=== PATIENT | male | born 1970 | race Caucasian/White ===

== ENCOUNTER → 2016-05-30 | Outpatient (CLI) | payer BC ==
[~2016-05-30] MED LIST: ACET-1138 PO; IBUP-1105 PO
--- NOTE | 2016-05-30 15:42 | DIAGNOSTIC IMAGING REPORT ---
CHEST 2 VIEWS ROUTINE CLINICAL HISTORY: Fever. Right lower lobe rales. COMPARISON STUDY: 01/04/2009 FINDINGS: The heart is the upper limits of normal in size. There is mild interstitial thickening with a basilar predominance. There is no lobar consolidation. There is no overt failure. There are no pleural effusions.[ IMPRESSION: Mild interstitial thickening with a basilar predominance. No evidence of lobar consolidation Electronically signed by: Joselo Morillo M.D. 05/30/2016 3:41 PM Dictated Date/Time: 05/30/2016 3:40 PM
== END | disposition home or self-care (01) ==
LOC: C.LAB1850 15:20
PROVIDERS: ATTEND Family Medicine
DX: J18.9 Pneumonia, unspecified organism (principal)

== ENCOUNTER 2020-09-06 19:15 | Inpatient (IN) ==
[2020-09-06 21:09] LABS: Basophils # (auto) 0.03 K/uL (0-0.2); Basophils % (auto) 0.2 %; Eosinophils # (auto) 0.08 K/uL (0-0.5); Eosinophils % (auto) 0.6 %; Hematocrit (blood only) 43.4 % (42-52); Hemoglobin 14.5 g/dL (14.0-18.0); Immature Granulocytes # (auto) 0.02 K/uL (0.00-0.02); Immature Granulocytes % (auto) 0.2 %; Lymphocytes # (auto) 1.12 K/uL (1.2-3.4); Lymphocytes % (auto) 8.8 %; Mean Corpuscular Hemoglobin 29.8 pg (25-34); Mean Corpuscular Hgb Conc 33.4 g/dL (32-36); Mean Corpuscular Volume 89.3 fL (80-100); Mean Platelet Volume 11.1 fL (7.4-10.4); Monocytes # (auto) 1.29 K/uL (0.11-0.59); Monocytes % (auto) 10.1 %; Neutrophils # (auto) 10.26 K/uL (1.4-6.5); Neutrophils % (auto) 80.1 %; Platelet Count 230 K/uL (130-400); RDW Coefficient of Variation 13.5 % (11.5-14.5); RDW Standard Deviation 44.4 fL (36.4-46.3); Red Blood Count 4.86 M/uL (4.7-6.1)
[2020-09-06 21:25] LABS: Albumin Level 3.6 gm/dl (3.4-5.0); BUN Creatinine Ratio 9.8 (10-20); Calcium 9.1 mg/dl (8.5-10.1); Creatinine Clr Calc Pharmacy 110.4 ml/min; Est GFR (African American) 94.6 ml/min; Est GFR (Non-African American) 81.7 ml/min; Potassium 3.6 mmol/L (3.5-5.1)
[2020-09-06 21:28] LABS: Albumin Globulin Ratio 0.9 (0.9-2); Bilirubin,Total 1.8 mg/dl (0.2-1); Globulin 4.2 gm/dl (2.5-4.0); Total Protein 7.8 gm/dl (6.4-8.2)
[2020-09-06] MEDS ORDERED: HYDROmorphone INJ 1 MG/ML SYRINGE IV STA (21:56)
[2020-09-06] MEDS ORDERED: SODIUM CHLORIDE 0.9% 1000ML 1,000 ML IV ONE (21:56)
[2020-09-06] MEDS ORDERED: ONDANSETRON INJ 2 MG/ML 2 ML VIAL IV STA (21:56)
[2020-09-07] MEDS ORDERED: HYDROmorphone INJ 0.5 MG/0.5 ML SYR IV STA ×2 (02:04→02:05)
[2020-09-07] MEDS ORDERED: LORazepam 1 MG/2 ML VIAL IV PRN (02:57)
[2020-09-07] MEDS ORDERED: NITROGLYCERIN SL 0.4 MG/TAB TAB SL PRN (02:57)
[2020-09-07] MEDS ORDERED: ALBUTEROL HFA 8 GM INHALER INH PRN (02:57)
[2020-09-07] MEDS ORDERED: ONDANSETRON INJ 2 MG/ML 2 ML VIAL IV PRN (02:57)
[2020-09-07] MEDS ORDERED: ACETAMINOPHEN 325 MG TAB PO PRN (02:57)
[2020-09-07] MEDS: LACTATED RINGER'S 1,000 ML IV SCH ×4 (03:05→19:41)
[2020-09-07] MEDS ORDERED: cloNIDine HCL 0.1 MG TAB PO PRN (03:33)
--- NOTE | 2020-09-07 05:43 | History and Physical Report ---
DATE OF ADMISSION: 09/07/2020. CHIEF COMPLAINT: Abdominal pain. HISTORY OF PRESENT ILLNESS: This is a 50-year-old male with past medical history significant for allergic rhinitis, extensive asthma, hypertension, who presents with abdominal pain. The patient was seen in the ER in the morning with CAT scan showing pancreatitis. Offered admission, but the patient wanted to go home. After going home, the abdominal pain came back and was severe in nature in the epigastric region. Also has some nausea and vomiting, so that is why they came to ER. Denies any diarrhea or blood in the stools. Normal bladder movements. No fever, no chills, no chest pain, no shortness of breath, no cough, no headache, no blurred vision, no earache, no runny nose, no sore throat. Currently, resting comfortably and hemodynamically stable. Says the abdominal pain is coming back, requests pain medication. The patient was here on 08/23/2020 also with a similar problem. At that time, also was treated in the ER and discharged. The patient states it all started a few weeks ago with binge drinking of alcohol and this time it started off last Sunday when he drank a beer. He says he does not drink regularly, he drinks once in a while. ALLERGIES: TO PENICILLINS. PAST MEDICAL HISTORY: As mentioned above. PAST SURGICAL HISTORY: None. MEDICATIONS: On losartan 50 mg p.o. daily, albuterol 2 puffs inhalation q. 4 hours p.r.n., oxycodone 5 mg p.o. q. 6 hours p.r.n., omeprazole 20 mg p.o. daily, Zofran 4 mg p.o. q. 8 hours p.r.n. FAMILY HISTORY: Significant for brother has COPD, heart disorder; father has heart attack and hypertension; mother has hypertension. SOCIAL HISTORY: , no smoking. Alcohol occasional. No drug use. REVIEW OF SYSTEMS: As per HPI. Rest of the review of systems is negative. PHYSICAL EXAMINATION: GENERAL: The patient is obese, not in acute distress. VITAL SIGNS: Temperature 36.7, pulse 69, respiratory rate 14, blood pressure 156/99, oxygen 95% on 2 liters. HEENT: Pupils equal, round, and reactive to light. Oral mucosa moist. NECK: No JVD, no neck masses. CARDIOVASCULAR: S1 and S2 heard. Regular rate and rhythm. No murmur, no gallop. RESPIRATORY SYSTEM: Normal AP diameter. No accessory muscle use. No wheezing, no crackles ABDOMEN: Soft, bowel sounds present. Tenderness in the epigastric region. Mild guarding, no rigidity, no distention. CENTRAL NERVOUS SYSTEM: Cranial nerves II-XII grossly intact, nonfocal. EXTREMITIES: No edema, no erythema. LABORATORY DATA: WBC 12.8, hemoglobin 14.5, hematocrit 43.4, platelets 230. Sodium 138, potassium 3.6, chloride 104, bicarbonate 29, BUN 11, creatinine 1.07, serum glucose 115, calcium 9.1, total bilirubin 1.8, AST 8, ALT 27, alkaline phosphatase 85. Lipase 133. SARS-CoV-2 PCR negative. EKG: Normal sinus rhythm at a rate of 81. No significant change was found. IMAGING DATA: CAT scan done on 09/06/2020 morning is showing infiltration of fat surrounding the pancreatic head and neck suggestive of acute interstitial pancreatitis. ASSESSMENT AND PLAN: This is a 50-year-old male who presents with pancreatitis. 1. Acute pancreatitis: It started after binge drinking of alcohol. He says he does not drink regularly. Will keep him n.p.o. Aggressive fluids, IV Dilaudid p.r.n., IV antiemetics p.r.n. Consult GI in the a.m. for further recommendation. 2. Alcoholism: The patient says he does not drink regularly, but will monitor for any withdrawal. Placed him on IV Ativan p.r.n. Will place him on p.o. thiamine, folic acid, multivitamin. 3. HTN: Continue losartan. Clonidine prn. 4. elevated Bilirubin.mostly from alcohol.will follow repeat labs. 5. Gastroesophageal reflux disease: Placed on IV Pepcid 6. History of extensive asthma: Continue home inhalers p.r.n. 7. Deep venous thrombosis prophylaxis: Lovenox. DISPOSITION: Monitor in the med tele. Expect to discharge home and follow up with family doctor. Level 1 full code. Job ID: [id number] [facility]
[2020-09-07] MEDS: HYDROmorphone INJ 0.5 MG/0.5 ML SYR IV PRN ×2 (07:42→13:40)
[2020-09-07 07:49] LABS: Basophils # (auto) 0.03 K/uL (0-0.2); Basophils % (auto) 0.3 %; Hematocrit (blood only) 39.9 % (42-52); Hemoglobin 13.2 g/dL (14.0-18.0); Immature Granulocytes # (auto) 0.02 K/uL (0.00-0.02); Immature Granulocytes % (auto) 0.2 %; Lymphocytes # (auto) 1.43 K/uL (1.2-3.4); Lymphocytes % (auto) 14.6 %; Mean Corpuscular Hemoglobin 29.8 pg (25-34); Mean Corpuscular Hgb Conc 33.1 g/dL (32-36); Mean Corpuscular Volume 90.1 fL (80-100); Mean Platelet Volume 11.4 fL (7.4-10.4); Monocytes # (auto) 1.08 K/uL (0.11-0.59); Neutrophils # (auto) 7.05 K/uL (1.4-6.5); Neutrophils % (auto) 71.9 %; Platelet Count 220 K/uL (130-400); RDW Coefficient of Variation 13.7 % (11.5-14.5); RDW Standard Deviation 45.1 fL (36.4-46.3); Red Blood Count 4.43 M/uL (4.7-6.1); White Blood Count 9.81 K/uL (4.8-10.8)
[2020-09-07 08:22] LABS: BUN Creatinine Ratio 11.3 (10-20); Calcium 8.8 mg/dl (8.5-10.1); Est GFR (African American) 119.4 ml/min; Magnesium 2.3 mg/dl (1.8-2.4); Potassium 3.8 mmol/L (3.5-5.1)
[2020-09-07] MEDS: LOSARTAN POTASSIUM 50 MG TAB PO SCH (08:28)
[2020-09-07] MEDS: FAMOTIDINE 20 MG in SYRINGE 3 ML IV SCH ×2 (08:28→20:29)
[2020-09-07] MEDS: THIAMINE HCL 100 MG TAB PO SCH (08:29)
[2020-09-07] MEDS: FOLIC ACID 1 MG TAB PO SCH (08:29)
[2020-09-07] MEDS: CEROVITE ADV FORMULA TAB PO SCH (08:29)
[2020-09-07] MEDS: ENOXAPARIN INJ 40 MG/0.4 ML SYR SQ SCH (08:29)
--- NOTE | 2020-09-07 08:37 | Gastrointestinal Consultation ---
Date of Consultation September 07, 2020 Assessment & Plan (1) Acute pancreatitis: 50 year old male s/p CCY w/ recent CT imaging 08/23 concerning for acute pancreatitis, admitted through the ED w/ return of upper abd pain after 1-2 beers Sunday, lipase/lfts unremarkable but CT concerning for . Infiltration of fat surrounding the pancreatic head and neck suggestive of acute interstitial pancreatitis NPO IV LR 200 ml/hr Assess for good fluid hydration Antiemetics PRN Analgesia PRN MRCP today OP [facility] in 4 weeks Would start PO PPI once daily Thank you for allowing us to participate in the care of this patient. Please call with any acute changes, questions or concerns. Please see addendum below with additional recommendation from my supervising physician. Supervising Physician Co-Signing Physician Notes Attending attestation I have seen, examined this patient, and agree with the findings and above by our mid-level provider TRINA Lucia, with the following additions: - Smoldering Alcohol induced pancreatitis without organ dysfunction - Continue conservative care - MRCP today - Outpt [facility] History of Present Illness Reason for Consultation: pancreatitis Requesting Physician: Beth Attending Physician: Stu Campos DO History of Present Illness 50 year old male with w/ history of allergic rhinitis, extensive asthma, hypertension who presents with abdominal pain. Of note he was in the ED about 2 weeks ago he developed severe abd pain after high ETOH intake. At that time, CT evidence of pancreatitis. He had felt better after fluids and was discharged home. He notes he felt well for about 1 week. He had 1-2 beers Sunday and about three hours later his symptoms returned. Severe upper abd pain w/ nausea/vomiting. Presented through the ED. Labs largely unremarkable, CT w/ infiltration of fat surrounding the pancreatic head and neck suggestive of acute interstitial pancreatitis. He denies drug use He rarely uses ETOH but does report binge drinking prior to his August 23 symptoms. No weight loss He is unsure why he had his GB out Lipase: 323 --> 133 TB: 1.3 --> 1.8 AST 12 -->8 ALT: 35 --> 27 ALKP 86 --> 85 CTAP 09/06: No evidence of bowel obstruction. No evidence of free airNormal appendix. No evidence of acute diverticulitis Infiltration of fat surrounding the pancreatic head and neck suggestive of acute interstitial pancreatitis. Clinical correlation and correlation with the appropriate biochemical markers recommended. CTAP 08/23: Findings are consistent with acute pancreatitis. Correlate with clinical findings and serum amylase/lipase levels. The gland enhances throughout. No organized peripancreatic fluid collection is identified. Allergies Allergy/AdvReac Type Severity Reaction Status Date / Time Penicillins Allergy Mild RASH Verified 09/06/20 09:17 Home Medications Medication Instructions Recorded Confirmed Type albuterol sulfate 2 puff INHALATION Q4H PRN 08/23/20 09/06/20 History ipratropium-albuterol [Combivent 2 puff INHALATION Q6H PRN 08/23/20 09/06/20 History Respimat] losartan 50 mg PO DAILY 08/23/20 09/06/20 History omeprazole 20 mg PO DAILY 08/23/20 09/06/20 History ondansetron HCl [Zofran] 4 mg PO Q8H 3 Days #9 tab 09/06/20 09/06/20 Rx oxycodone 5 mg PO Q6H PRN #14 tab 09/06/20 09/06/20 Rx Patient History Medical History (Updated 09/07/20 @ 00:05 by John Lewis) No pertinent past medical history Surgical History No pertinent past surgical history Social History Smoking Status: Never smoker Hx Alcohol Use: Yes Hx Substance Use: Yes Preferred Language: Finnish Current Living Situation: Spouse Feels Safe at Home: Yes Review of Systems Review of Systems: All systems reviewed & are unremarkable except as noted in HPI & below Physical Exam Constitutional: WD/WN, vitals as above Neck: trachea midline; no neck crepitus Respiratory: normal respiratory effort, lungs clear to auscultation Cardiovascular: RRR, no murmur, no edema Gastrointestinal (Abdomen): Inspection/Auscultation: abdomen normal to inspection and normal bowel sounds; abdomen not distended Percussion/Palpation: + abdomen tender and abdomen soft; no guarding and abdomen not rigid Skin: no rashes, warm and dry Results & Data ([facility]) Vital Signs (Past 12 Hours) Vital Signs Temp Pulse Pulse Resp BP BP Pulse Ox 09/07/20 07:13 36.8 C 80 17 148/83 H 98 09/07/20 07:11 69 09/07/20 07:09 78 09/07/20 03:47 69 167/105 H 09/07/20 03:27 37.1 C 69 16 207/125 H 100 09/07/20 02:30 74 14 160/105 H 96 09/07/20 02:03 70 12 178/123 H 99 09/07/20 01:30 64 15 191/114 H 97 09/07/20 01:00 68 12 171/109 H 97 09/07/20 00:30 69 14 156/99 H 95 09/07/20 00:00 69 14 161/86 H 96 09/06/20 23:30 69 14 159/98 H 94 09/06/20 23:00 72 20 159/102 H 98 09/06/20 22:33 86 L 09/06/20 22:30 78 14 159/90 H 97 09/06/20 22:10 97 09/06/20 22:08 81 14 175/108 H 97 09/06/20 21:03 78 16 182/117 H 98 Laboratory Results 09/07/20 09/07/20 09/06/20 Range/Units 07:05 07:05 22:45 WBC 9.81 (4.8-10.8) K/uL RBC 4.43 L (4.7-6.1) M/uL Hgb 13.2 L (14.0-18.0) g/dL Hct 39.9 L (42-52) % MCV 90.1 (80-100) fL MCH 29.8 (25-34) pg MCHC 33.1 (32-36) g/dL RDW Std Deviation 45.1 (36.4-46.3) fL RDW Coeff of Kalin 13.7 (11.5-14.5) % Plt Count 220 (130-400) K/uL MPV 11.4 H (7.4-10.4) fL Immature Gran % (Auto) 0.2 % Neut % (Auto) 71.9 % Lymph % (Auto) 14.6 % [place] % (Auto) 11.0 % Eos % (Auto) 2.0 % Baso % (Auto) 0.3 % Neut # (Auto) 7.05 H (1.4-6.5) K/uL Lymph # (Auto) 1.43 (1.2-3.4) K/uL [place] # (Auto) 1.08 H (0.11-0.59) K/uL Eos # (Auto) 0.20 (0-0.5) K/uL Baso # (Auto) 0.03 (0-0.2) K/uL Immature Gran # (Auto) 0.02 (0.00-0.02) K/uL Sodium 140 (136-145) mmol/L Potassium 3.8 (3.5-5.1) mmol/L Chloride 107 (98-107) mmol/L Carbon Dioxide 30 (21-32) mmol/L Anion Gap 3.0 (3-11) BUN 10 (7-18) mg/dl Creatinine 0.85 (0.6-1.4) mg/dl Est Cr Clr Drug Dosing 139.0 ml/min Est GFR ( Amer) 119.4 ml/min Est GFR (Non-Af Amer) 103.0 ml/min BUN/Creatinine Ratio 11.3 (10-20) Glucose 112 H (70-99) mg/dl Calcium 8.8 (8.5-10.1) mg/dl Magnesium 2.3 (1.8-2.4) mg/dl Total Bilirubin (0.2-1) mg/dl AST (15-37) U/L ALT (12-78) U/L Alkaline Phosphatase (45-117) U/L Total Protein (6.4-8.2) gm/dl Albumin (3.4-5.0) gm/dl Globulin (2.5-4.0) gm/dl Albumin/Globulin Ratio (0.9-2) Lipase (73-393) U/L COVID-19 Eval Order SARS-CoV-2 (PCR) NEGATIVE (Negative) 09/06/20 09/06/20 09/06/20 Range/Units 22:45 21:02 21:02 WBC 12.80 H (4.8-10.8) K/uL RBC 4.86 (4.7-6.1) M/uL Hgb 14.5 (14.0-18.0) g/dL Hct 43.4 (42-52) % MCV 89.3 (80-100) fL MCH 29.8 (25-34) pg MCHC 33.4 (32-36) g/dL RDW Std Deviation 44.4 (36.4-46.3) fL RDW Coeff of Kalin 13.5 (11.5-14.5) % Plt Count 230 (130-400) K/uL MPV 11.1 H (7.4-10.4) fL Immature Gran % (Auto) 0.2 % Neut % (Auto) 80.1 % Lymph % (Auto) 8.8 % [place] % (Auto) 10.1 % Eos % (Auto) 0.6 % Baso % (Auto) 0.2 % Neut # (Auto) 10.26 H (1.4-6.5) K/uL Lymph # (Auto) 1.12 L (1.2-3.4) K/uL [place] # (Auto) 1.29 H (0.11-0.59) K/uL Eos # (Auto) 0.08 (0-0.5) K/uL Baso # (Auto) 0.03 (0-0.2) K/uL Immature Gran # (Auto) 0.02 (0.00-0.02) K/uL Sodium 138 (136-145) mmol/L Potassium 3.6 (3.5-5.1) mmol/L Chloride 104 (98-107) mmol/L Carbon Dioxide 29 (21-32) mmol/L Anion Gap 5.0 (3-11) BUN 11 (7-18) mg/dl Creatinine 1.07 (0.6-1.4) mg/dl Est Cr Clr Drug Dosing 110.4 ml/min Est GFR ( Amer) 94.6 ml/min Est GFR (Non-Af Amer) 81.7 ml/min BUN/Creatinine Ratio 9.8 L (10-20) Glucose 115 H (70-99) mg/dl Calcium 9.1 (8.5-10.1) mg/dl Magnesium (1.8-2.4) mg/dl Total Bilirubin 1.8 H (0.2-1) mg/dl AST 8 L (15-37) U/L ALT 27 (12-78) U/L Alkaline Phosphatase 85 (45-117) U/L Total Protein 7.8 (6.4-8.2) gm/dl Albumin 3.6 (3.4-5.0) gm/dl Globulin 4.2 H (2.5-4.0) gm/dl Albumin/Globulin Ratio 0.9 (0.9-2) Lipase 133 (73-393) U/L COVID-19 Eval Order Covid19 at [facility] SARS-CoV-2 (PCR) (Negative) (1) Acute pancreatitis Acute pancreatitis complication: unspecified Pancreatitis type: unspecified pancreatitis type Qualified Code(s): K85.90 - Acute pancreatitis without necrosis or infection, unspecified
--- NOTE | 2020-09-07 12:01 | XRay Report ---
BONY ORBITS 3 VIEWS CLINICAL HISTORY: MRI clearance. FINDINGS: 3 views of the bony orbits are obtained. No prior studies are available for comparison at t he time of dictation. There is no radiodense/metallic foreign body seen in the region of the bony orb its. The bony orbits are intact as imaged. The visualized paranasal sinuses and the mastoid air cells appear clear. The imaged calvarium appears intact. IMPRESSION: There is no radiodense/metallic foreign body seen in the region of the bony orbits. ACT 112: Negative or not required by law. Electronically signed by: Bello Bucio M.D. 09/07/2020 12:00 PM
--- NOTE | 2020-09-07 14:30 | Magnetic Resonance Report ---
MRCP CLINICAL HISTORY: Recurrent pancreatitis. COMPARISON STUDY: Abdominal CT dated 09/06/2020. TECHNIQUE: Abdominal MRCP is performed utilizing various T2-weighted sequences in the axial and coron al planes. IV contrast was not administered for this examination. 3-D reformats are created and asses sed. FINDINGS: The gallbladder is surgically absent. There is no intrahepatic biliary ductal dilatation. The common bile duct measures up to 7 mm in diameter. No intraluminal filling defects are seen to suggest choled ocholithiasis. The pancreatic duct is normal in caliber. The unenhanced liver, spleen, and adrenal glands, are grossly normal. The kidneys are normal in size and without hydronephrosis. Bilateral renal sinus cisterns are incidentally noted. There is mild infi ltration and trace fluid around the pancreatic head consistent with the reported history of pancreati tis. No organized fluid collection is identified. No upper abdominal ascites is seen. The abdominal a blanka is normal in caliber. There is no bowel obstruction. The bony structures are normal as visualize d. No pleural effusion is seen. IMPRESSION: 1. Normal MRCP noting status post cholecystectomy. 2. There is evidence of mild acute pancreatitis. Dictated: 09/07/2020 1:45 PM Transcribed: 09/07/2020 2:16 PM Codie [id number] [email or web address] Electronically signed by: Bello Bucio M.D. 09/07/2020 2:29 PM
[2020-09-08] MEDS: LACTATED RINGER'S 1,000 ML IV SCH ×2 (01:03→05:40)
--- NOTE | 2020-09-08 07:56 | Discharge Summary ---
Date of Service September 08, 2020 Admission HPI Per Admitting Provider 50-year-old male with past medical history significant for allergic rhinitis, extensive asthma, hypertension, who presents with abdominal pain. The patient was seen in the ER in the morning with CAT scan showing pancreatitis. Offered admission, but the patient wanted to go home. After going home, the abdominal pain came back and was severe in nature in the epigastric region. Also has some nausea and vomiting, so that is why they came to ER. Denies any diarrhea or blood in the stools. Normal bladder movements. No fever, no chills, no chest pain, no shortness of breath, no cough, no headache, no blurred vision, no earache, no runny nose, no sore throat. Currently, resting comfortably and hemodynamically stable. Says the abdominal pain is coming back, requests pain medication. The patient was here on 08/23/2020 also with a similar problem. At that time, also was treated in the ER and discharged. The patient states it all started a few weeks ago with binge drinking of alcohol and this time it started off last Sunday when he drank a beer. He says he does not drink regularly, he drinks once in a while. Admission Exam Per Admitting Provider PHYSICAL EXAMINATION: GENERAL: The patient is obese, not in acute distress. VITAL SIGNS: Temperature 36.7, pulse 69, respiratory rate 14, blood pressure 156/99, oxygen 95% on 2 liters. HEENT: Pupils equal, round, and reactive to light. Oral mucosa moist. NECK: No JVD, no neck masses. CARDIOVASCULAR: S1 and S2 heard. Regular rate and rhythm. No murmur, no gallop. RESPIRATORY SYSTEM: Normal AP diameter. No accessory muscle use. No wheezing, no crackles ABDOMEN: Soft, bowel sounds present. Tenderness in the epigastric region. Mild guarding, no rigidity, no distention. CENTRAL NERVOUS SYSTEM: Cranial nerves II-XII grossly intact, nonfocal. EXTREMITIES: No edema, no erythema. Principal Diagnosis 1. Acute pancreatitis 2. Alcoholism: 3. HTN 4. elevated Bilirubin. 5. Gastroesophageal reflux disease: 6. History of extensive asthma Discharge Exam ROS-No Headache, No Visual Changes, No Nausea, No Vomiting, No Fever, No Chills, No Neck Pain or Stiffness, No Chest Pain, No Palpitations, No SOB, No HIGHTOWER, No Cough, No Sputum, No Wheezing, No Abdominal Pain, No Diarrhea, No Hematemesis, No Hemoptysis, No Unexpected Weight Loss, No Flank pain, No Melena, No Hematochezia, No Frequency, No Urgency, No Burning, No Hematuria, No Rashes, No Diaphoresis. Appetite is Normal Physical Exam Gen-AAO x 3, NAD, Afebrile Head-NCAT, EOMI, PERRLA, Anicteric Sclera, No Posterior Pharyngeal Erythema Neck-Supple, No JVD, No Thyromegaly, No Masses, No LAD, No Bruits Lungs-Clear to Auscultation Bilaterally, No Rales, No Rhonchi, No Wheezing, No Crepitus Chest-No S4, +S1, +S2, No S3, No Murmurs, No Rubs, No Gallops, No Ectopy Abdomen-Soft, Bowel Sounds Present, Non Tender, Non Distended, No Hepatomegaly, No Splenomegaly, No Palpable Masses, No Rebound, No Rigidity, No Guarding Musculoskeletal-Full Range of Motion Bilaterally, No CVAT Extremities-No Cyanosis, No Clubbing, No Edema Nuero-Cranial Nerves II-XII grossly intact, Motor WNL, DTRs WNL, Strength WNL, Non Focal Psych-Normal Mood Discharge Data Allergies Allergy/AdvReac Type Severity Reaction Status Date / Time Penicillins Allergy Mild RASH Verified 09/06/20 09:17 Consultations 09/06/20 23:03 ED Decision to Admit Stat 09/07/20 08:00 Consult Gastroenterology Routine Ordered Studies 09/07/20 10:12 MR MRCP Routine Current Diagnoses Acute pancreatitis without necrosis or infection, unspecified (09/07/20) Allergies Penicillins Allergy (Mild, Verified 09/06/20 09:17) RASH Height/Weight/Isolation Height 6 ft Weight 111.2 kg Chemistry 09/06/20 09/07/20 21:02 07:05 Sodium 138 140 Potassium 3.6 3.8 Chloride 104 107 Carbon Dioxide 29 30 Anion Gap 5.0 3.0 BUN 11 10 Creatinine 1.07 0.85 Glucose 115 H 112 H Hospital Course (1) Acute pancreatitis: (2) Abdominal pain: (3) Elevated bilirubin: ASSESSMENT AND PLAN: This is a 50-year-old male who presents with pancreatitis. 1. Acute pancreatitis: It started after binge drinking of alcohol. He says he does not drink regularly. He feels fine now, ready for DC 2. Alcoholism: Stop 3. HTN: Continue losartan. Clonidine prn. 4. elevated Bilirubin from alcohol. 5. Gastroesophageal reflux disease: Placed on IV Pepcid, DC on PPI 6. History of extensive asthma: Continue home inhalers p.r.n. DC home today Total Time Total Time Spent Total Time Spent (In Minutes): 45 mins Total Time Includes: Examination of the Patient, Discharge Planning, Medication Reconciliation and Communication With Other Providers Discharge Plan Discharge Items Patient Disposition: Home - Self-Care Reason For Visit: ABDOMINAL PAIN Discharge Diagnosis: 1. Acute pancreatitis 2. Alcoholism: 3. HTN 4. elevated Bilirubin. 5. Gastroesophageal reflux disease: 6. History of extensive asthma Condition on Discharge: Good Health Concerns: Alcohol use Activity: Resume your previous activity Lifting: Gradually increase as tolerated Bathing: No limitations Sexual Activity: When tolerated Driving/Machine Use: No limitations Weightbearing: Full weightbearing Non-emergency contact: Primary Care Provider and Communications Writer Call non-emergency contact if: you have any medication questions Follow-up/Referrals: Zac Pulido MD [Physician] - ([facility] in 4 weeks, Call to schedule) Ryan Aguilar MD [Primary Care Provider] - Diet: Regular Addtl Attending Provider Instructions: No alcohol for several weeks Pending Studies at Discharge: No Stand-Alone Forms: [employer], Smoking Cessation Medications and DC Order Prescriptions: New thiamine HCl (vitamin B1) [Vitamin B-1] 100 mg Tablet 100 mg PO QAM Qty: 30 RF: 0 folic acid 1 mg Tablet 1 mg PO QAM Qty: 30 RF: 0 Continued oxycodone 5 mg tablet 5 mg PO Q6H PRN (Reason: pain) Qty: 14 RF: 0 ondansetron HCl [Zofran] 4 mg tablet 4 mg PO Q8H 3 Days Qty: 9 RF: 0 losartan 50 mg tablet 50 mg PO DAILY RF: 0 albuterol sulfate 90 mcg/actuation HFA aerosol inhaler 2 puff INHALATION Q4H PRN (Reason: Shortness Of Breath) RF: 0 omeprazole 20 mg Tablet,Delayed Release (Dr/Ec) 20 mg PO DAILY RF: 0 Combivent Respimat 20-100 mcg/actuation Mist 2 puff INHALATION Q6H PRN (Reason: Wheezing) RF: 0 Discharge Orders: Discharge Order (Routine); Ordered 09/08/20 Ordered By: Stu Campos Admission Data Admit Date/Time: 09/07/20 02:08 Attending Provider: Stu Campos Admit Provider: Cristino Shrestha Primary Care Provider: Ryan Aguilar Other Providers: Cristino Shrestha ; Lorie Martinez ; Zara John ; Ander Johnson ; Jess Zuniga ; Zac Pulido ; Manan Sotomayor ; Sonny Green ; Adonay Hebert ; Ria Sanches ; Nu [place] ; Ирина Alcantara ; Abigail Marquez ; Zane Viera
--- NOTE | 2020-09-08 08:04 | Emergency Department Note ---
History of Present Illness General Chief complaint: Abdominal Pain Stated complaint: ABDOMINAL PAIN Time Seen by Provider: 09/06/20 21:35 Source: patient Mode of arrival: ambulatory Limitations: no limitations History of Present Illness Maximum Pain Intensity: 3 This patient is a 50-year-old male who presents to the emergency department complaining of abdominal pain and vomiting. Patient was seen here this morning and diagnosed with pancreatitis, but chose to be discharged at that time rather than being admitted. He states that since leaving, his symptoms have worsened and he is unable to tolerate the pain. He has had epigastric pain and vomiting. He states that he had one beer yesterday afternoon and his symptoms started shortly after that. He has had one episode of pancreatitis in the past which he states was due to alcohol consumption. He rates his current discomfort an 8/10. He tried to use his prescription medications at home but they did not help. He denies any fevers, urinary symptoms or diarrhea. Home Medications Medication Instructions Recorded Confirmed Type Combivent Respimat 2 puff INHALATION Q6H PRN 08/23/20 09/06/20 History albuterol sulfate 2 puff INHALATION Q4H PRN 08/23/20 09/06/20 History losartan 50 mg PO DAILY 08/23/20 09/06/20 History omeprazole 20 mg PO DAILY 08/23/20 09/06/20 History oxycodone 5 mg PO Q6H PRN #14 tab 09/06/20 09/06/20 Rx folic acid 1 mg PO QAM #30 tab 09/08/20 Rx thiamine HCl (vitamin B1) [Vitamin 100 mg PO QAM #30 tab 09/08/20 Rx B-1] Allergies Allergy/AdvReac Type Severity Reaction Status Date / Time Penicillins Allergy Mild RASH Verified 09/06/20 09:17 Past Med/Surg History Medical History (Updated 09/09/20 @ 07:53 by Deanna Evans PA-C) No pertinent past medical history Surgical History No pertinent past surgical history Social History Smoking Status: Never smoker Hx Alcohol Use: Yes Hx Substance Use: Yes Preferred Language: Luxembourger Communication Ability: Effective marital status: Current Living Situation: Spouse Feels Safe at Home: Yes Review of Systems A total of 10 systems reviewed and were otherwise negative Physical Exam VITALS: Vitals are noted on the nurse's note and reviewed by myself. GENERAL: This is a 50-year-old male, uncomfortable appearing but in no signific ant distress, well-developed well-nourished. SKIN: The skin was without rashes. EARS: External auditory canals clear, tympanic membranes pearly rooney without erythema or effusion bilaterally. EYES: Pupils equal round and reactive to light and accommodation. MOUTH: Mucous membranes moist. Tonsils are not enlarged. Pharynx without erythema or exudate. NECK: Supple without nuchal rigidity. No lymphadenopathy. HEART: Regular rate and rhythm without murmurs gallops or rubs. LUNGS: Clear to auscultation bilaterally without wheezes, rales or rhonchi. ABDOMEN: Positive bowel sounds x 4. Soft with mild epigastric tenderness to palpation. No guarding or rebound tenderness. NEURO: Patient was alert and oriented to person place and time. Course Consultations Consultation #1: [facility]. Shrestha [facility] hospitalist Administered Medications Discontinued Medications Clonidine HCl (Clonidine Hcl 0.1 Mg Tab) 0.1 mg PO Q4H PRN PRN Reason: Hypertension Stop: 10/07/20 03:32 Last Admin: 09/07/20 03:57 Dose: 0.1 mg Documented by: [id number] Enoxaparin Sodium (Enoxaparin Inj 40 Mg/0.4 Ml Syr) 40 mg SQ Q24H GALLITO Stop: 10/07/20 07:59 Last Admin: 09/08/20 08:37 Dose: 40 mg Documented by: [id number] Admin: 09/07/20 08:29 Dose: 40 mg Documented by: [id number] Folic Acid (Folic Acid 1 Mg Tab) 1 mg PO QAM GALLITO Stop: 10/07/20 08:59 Last Admin: 09/08/20 08:39 Dose: 1 mg Documented by: [id number] Admin: 09/07/20 08:29 Dose: 1 mg Documented by: [id number] Hydromorphone HCl (Hydromorphone Inj 1 Mg/Ml Syringe) 1 mg IV NOW STA Stop: 09/06/20 21:57 Last Admin: 09/06/20 22:01 Dose: 1 mg Documented by: [id number] Hydromorphone HCl (Hydromorphone Inj 0.5 Mg/0.5 Ml Syr) 0.5 mg IV NOW STA Stop: 09/07/20 02:05 Last Admin: 09/07/20 02:21 Dose: 0.5 mg Documented by: [id number] Hydromorphone HCl (Hydromorphone Inj 0.5 Mg/0.5 Ml Syr) 0.5 mg IV NOW STA Stop: 09/07/20 02:06 Last Admin: 09/07/20 03:17 Dose: Not Given Documented by: [id number] Hydromorphone HCl (Hydromorphone Inj 0.5 Mg/0.5 Ml Syr) 0.5 mg IV Q3H PRN PRN Reason: Pain Stop: 09/21/20 02:56 Last Admin: 09/07/20 13:40 Dose: 0.5 mg Documented by: [id number] Admin: 09/07/20 07:42 Dose: 0.5 mg Documented by: [id number] Sodium Chloride (Nss 1000ml) 1,000 mls @ 999 mls/hr IV .Q1H1M ONE Stop: 09/06/20 22:56 Last Infusion: 09/06/20 22:55 Dose: 0 mls/hr Documented by: [id number] Admin: 09/06/20 22:01 Dose: 999 mls/hr Documented by: [id number] Lactated Ringer's (Lr) 1,000 mls @ 200 mls/hr IV .Q5H GALLITO Stop: 10/07/20 02:56 Last Admin: 09/08/20 05:40 Dose: 200 mls/hr Documented by: [id number] Infusion: 09/08/20 05:40 Dose: 200 mls/hr Documented by: [id number] Admin: 09/08/20 01:03 Dose: 200 mls/hr Documented by: [id number] Infusion: 09/08/20 00:55 Dose: 200 mls/hr Documented by: [id number] Infusion: 09/07/20 20:00 Dose: 200 mls/hr Documented by: [id number] Infusion: 09/07/20 19:46 Dose: 0 mls/hr Documented by: [id number] Admin: 09/07/20 19:41 Dose: 200 mls/hr Documented by: [id number] Infusion: 09/07/20 18:30 Dose: 200 mls/hr Documented by: [id number] Admin: 09/07/20 13:30 Dose: 200 mls/hr Documented by: [id number] Infusion: 09/07/20 13:28 Dose: 0 mls/hr Documented by: [id number] Admin: 09/07/20 08:28 Dose: 200 mls/hr Documented by: [id number] Infusion: 09/07/20 08:05 Dose: 200 mls/hr Documented by: [id number] Admin: 09/07/20 03:05 Dose: 200 mls/hr Documented by: [id number] Famotidine 20 mg/ Syringe 5 mls @ 2.5 mls/min IV BID GALLITO Stop: 10/07/20 08:59 Last Admin: 09/07/20 20:29 Dose: 2.5 mls/min Documented by: [id number] Admin: 09/07/20 08:28 Dose: 2.5 mls/min Documented by: [id number] Losartan Potassium (Losartan Potassium 50 Mg Tab) 50 mg PO DAILY GALLITO Stop: 10/07/20 08:59 Last Admin: 09/08/20 08:38 Dose: 50 mg Documented by: [id number] Admin: 09/07/20 08:28 Dose: 50 mg Documented by: [id number] Multivitamins/Minerals (Cerovite Adv Formula Tab) 1 tab PO QAM GALLITO Stop: 10/07/20 08:59 Last Admin: 09/08/20 08:39 Dose: 1 tab Documented by: [id number] Admin: 09/07/20 08:29 Dose: 1 tab Documented by: [id number] Ondansetron HCl (Ondansetron Inj 2 Mg/Ml 2 Ml Vial) 4 mg IV NOW STA Stop: 09/06/20 21:57 Last Admin: 09/06/20 22:01 Dose: 4 mg Documented by: [id number] Thiamine HCl (Thiamine Hcl 100 Mg Tab) 100 mg PO QAM GALLITO Stop: 10/07/20 08:59 Last Admin: 09/08/20 08:38 Dose: 100 mg Documented by: [id number] Admin: 09/07/20 08:29 Dose: 100 mg Documented by: [id number] Medical Decision Making Differential Diagnosis Differential diagnosis includes appendicitis, diverticulitis, bowel obstruction, inflammatory bowel disease, renal colic, PUD, biliary pathology, pancreatitis, mesenteric ischemia, aortic pathology, infection, genitourinary, UTI, perforated viscus, among others. Home Medications Current Medication List: was personally reviewed by me Laboratory Data Attestation: I reviewed the patient's lab results. Result diagrams: 09/07/20 07:05 09/07/20 07:05 Lab Results 09/06/20 09/06/20 09/06/20 Range/Units 21:02 21:02 22:45 WBC 12.80 H (4.8-10.8) K/uL RBC 4.86 (4.7-6.1) M/uL Hgb 14.5 (14.0-18.0) g/dL Hct 43.4 (42-52) % MCV 89.3 (80-100) fL MCH 29.8 (25-34) pg MCHC 33.4 (32-36) g/dL RDW Std Deviation 44.4 (36.4-46.3) fL RDW Coeff of Kalin 13.5 (11.5-14.5) % Plt Count 230 (130-400) K/uL MPV 11.1 H (7.4-10.4) fL Immature Gran % (Auto) 0.2 % Neut % (Auto) 80.1 % Lymph % (Auto) 8.8 % Haakon % (Auto) 10.1 % Eos % (Auto) 0.6 % Baso % (Auto) 0.2 % Neut # (Auto) 10.26 H (1.4-6.5) K/uL Lymph # (Auto) 1.12 L (1.2-3.4) K/uL Haakon # (Auto) 1.29 H (0.11-0.59) K/uL Eos # (Auto) 0.08 (0-0.5) K/uL Baso # (Auto) 0.03 (0-0.2) K/uL Immature Gran # (Auto) 0.02 (0.00-0.02) K/uL Sodium 138 (136-145) mmol/L Potassium 3.6 (3.5-5.1) mmol/L Chloride 104 (98-107) mmol/L Carbon Dioxide 29 (21-32) mmol/L Anion Gap 5.0 (3-11) BUN 11 (7-18) mg/dl Creatinine 1.07 (0.6-1.4) mg/dl Est Cr Clr Drug Dosing 110.4 ml/min Est GFR ( Amer) 94.6 ml/min Est GFR (Non-Af Amer) 81.7 ml/min BUN/Creatinine Ratio 9.8 L (10-20) Glucose 115 H (70-99) mg/dl Calcium 9.1 (8.5-10.1) mg/dl Total Bilirubin 1.8 H (0.2-1) mg/dl AST 8 L (15-37) U/L ALT 27 (12-78) U/L Alkaline Phosphatase 85 (45-117) U/L Total Protein 7.8 (6.4-8.2) gm/dl Albumin 3.6 (3.4-5.0) gm/dl Globulin 4.2 H (2.5-4.0) gm/dl Albumin/Globulin Ratio 0.9 (0.9-2) Lipase 133 (73-393) U/L COVID-19 Eval Order Covid19 at [facility] SARS-CoV-2 (PCR) (Negative) 09/06/20 Range/Units 22:45 WBC (4.8-10.8) K/uL RBC (4.7-6.1) M/uL Hgb (14.0-18.0) g/dL Hct (42-52) % MCV (80-100) fL MCH (25-34) pg MCHC (32-36) g/dL RDW Std Deviation (36.4-46.3) fL RDW Coeff of Kalin (11.5-14.5) % Plt Count (130-400) K/uL MPV (7.4-10.4) fL Immature Gran % (Auto) % Neut % (Auto) % Lymph % (Auto) % Haakon % (Auto) % Eos % (Auto) % Baso % (Auto) % Neut # (Auto) (1.4-6.5) K/uL Lymph # (Auto) (1.2-3.4) K/uL Haakon # (Auto) (0.11-0.59) K/uL Eos # (Auto) (0-0.5) K/uL Baso # (Auto) (0-0.2) K/uL Immature Gran # (Auto) (0.00-0.02) K/uL Sodium (136-145) mmol/L Potassium (3.5-5.1) mmol/L Chloride (98-107) mmol/L Carbon Dioxide (21-32) mmol/L Anion Gap (3-11) BUN (7-18) mg/dl Creatinine (0.6-1.4) mg/dl Est Cr Clr Drug Dosing ml/min Est GFR ( Amer) ml/min Est GFR (Non-Af Amer) ml/min BUN/Creatinine Ratio (10-20) Glucose (70-99) mg/dl Calcium (8.5-10.1) mg/dl Total Bilirubin (0.2-1) mg/dl AST (15-37) U/L ALT (12-78) U/L Alkaline Phosphatase (45-117) U/L Total Protein (6.4-8.2) gm/dl Albumin (3.4-5.0) gm/dl Globulin (2.5-4.0) gm/dl Albumin/Globulin Ratio (0.9-2) Lipase (73-393) U/L COVID-19 Eval Order SARS-CoV-2 (PCR) NEGATIVE (Negative) ECG Data Attestation: I personally reviewed and interpreted this ECG as follows: Indication: + abdominal pain Rate (beats per minute): 81 Rhythm: + normal sinus ECG Intervals/blocks: + Normal QRS ECG ST segments: + Normal ST segments Change: no significant change MDM Narrative Continuous groundwater monitoring technician: Order was placed for continuous groundwater monitoring technician. Patient was placed on the groundwater monitoring technician. Patient was noted to be in normal sinus rhythm at an initial rate of 82 bpm. The patient is a 50-year-old male who presents today complaining of abdominal pain and vomiting. Patient was seen here earlier for pancreatitis and refused admission. He is back because his symptoms are worse. He is now agreeable to admission. CT scan from earlier in the day showed pancreatitis. [facility] the patient for further care. Impression & Plan Acute pancreatitis Discharge Plan Visit Data Chief Complaint: Abdominal Pain Stated Complaint: ABDOMINAL PAIN ED Provider: Juan Mahan ED Midlevel Provider: Deanna Evans Discharge Problem: Acute pancreatitis Patient Disposition: Admitted As Inpatient Condition: Good Discharge Instructions Interventions: ED Discharge Assessment Last Done: 09/07/20 02:35 Discharge Problem: Acute pancreatitis Qualifiers: Pancreatitis type: alcohol induced Acute pancreatitis complication: unspecified Qualified Code(s): K85.20 - Alcohol induced acute pancreatitis without necrosis or infection
[2020-09-08 08:08] LABS: Albumin Level 2.9 gm/dl (3.4-5.0); Bilirubin Direct 0.3 mg/dl (0-0.2); Bilirubin,Total 1.4 mg/dl (0.2-1)
[2020-09-08] MEDS: ENOXAPARIN INJ 40 MG/0.4 ML SYR SQ SCH (08:37)
[2020-09-08] MEDS: THIAMINE HCL 100 MG TAB PO SCH (08:38)
[2020-09-08] MEDS: LOSARTAN POTASSIUM 50 MG TAB PO SCH (08:38)
[2020-09-08] MEDS: CEROVITE ADV FORMULA TAB PO SCH (08:39)
[2020-09-08] MEDS: FOLIC ACID 1 MG TAB PO SCH (08:39)
--- NOTE | 2020-09-08 09:08 | Gastroenterology Progress Note ---
Date of Service September 08, 2020 Assessment & Plan (1) Acute pancreatitis: 50 year old male s/p CCY w/ recent CT imaging 08/23 concerning for acute pancreatitis, admitted through the ED w/ return of upper abd pain after 1-2 beersunday, lipase/lfts unremarkable but CT concerning for . Infiltration of fat surrounding the pancreatic head and neck suggestive of acute interstitial pancreatitis No GI contraindication to discharge Would continue low fat diet as tolerated OP EUS in 4 weeks PO PPI once daily Thank you for allowing us to participate in the care of this patient. Please call with any acute changes, questions or concerns. Please see addendum below with additional recommendation from my supervising physician. Admission and Anticipated Discharge Date Admission Date: September 07, 2020 Subjective Feeling well. No abd pain, nausea, vomiting. Tolerating PO intake at present, low fat. MRCP reviewed, no acute findings Wants to go home. Agreeable to OP EUS Agreeable to halfway ETOH cessation Review of Systems Review of Systems: All systems reviewed & are unremarkable except as noted in HPI & below Physical Exam Constitutional: WD/WN, vitals as above well developed, well nourished and average body habitus; no acute distress and not ill appearing Neck: trachea midline, no thyromegaly Respiratory: normal respiratory effort, lungs clear to auscultation Cardiovascular: RRR, no murmur, no edema Gastrointestinal (Abdomen): normal bowel sounds, soft, nontender, no hepatosplenomegaly Skin: no rashes, warm and dry Results & Data ([facility]) Vital Signs (Past 12 Hours) Vital Signs Temp Pulse Pulse Resp BP Pulse Ox 09/08/20 07:31 37 C 72 17 156/93 H 97 09/08/20 07:05 71 09/08/20 04:00 36.6 C 70 18 162/92 H 97 09/08/20 00:23 79 09/07/20 23:01 36.7 C 78 18 151/89 H 98 Laboratory Results 09/08/20 Range/Units 07:12 Total Bilirubin 1.4 H (0.2-1) mg/dl Direct Bilirubin 0.3 H (0-0.2) mg/dl AST 9 L (15-37) U/L ALT 19 (12-78) U/L Alkaline Phosphatase 70 (45-117) U/L Total Protein 7.0 (6.4-8.2) gm/dl Albumin 2.9 L (3.4-5.0) gm/dl (1) Acute pancreatitis Acute pancreatitis complication: unspecified Pancreatitis type: unspecified pancreatitis type Qualified Code(s): K85.90 - Acute pancreatitis without necrosis or infection, unspecified
--- NOTE | 2020-09-08 12:42 | Electrocardiogram Report ---
Test Reason : Blood Pressure : / mmHG Vent. Rate : 081 BPM Atrial Rate : 081 BPM P-R Int : 132 ms QRS Dur : 086 ms QT Int : 390 ms P-R-T Axes : 041 -05 -31 degrees QTc Int : 453 ms Poor data quality, interpretation may be adversely affected Normal sinus rhythm Normal ECG When compared with ECG of 08-DEC-2011 23:30, No significant change was found Confirmed by Harjinder Thompson ([id number]) on 09/08/2020 12:42:26 PM Referred By: REFERRED SELF Confirmed By:Harjinder Thompson
== END 2020-09-08 09:50 | disposition home or self-care (01) | DRG 440 ==
LOC: ED 19:15 → 2N 09-07 02:08

== ENCOUNTER 2021-04-09 01:51 | Inpatient (IN) ==
--- NOTE | 2021-04-09 02:10 | Emergency Department Note ---
History of Present Illness General Chief complaint: Abdominal Pain Stated complaint: PANCREATITIS Time Seen by Provider: 04/09/21 02:02 Source: patient Mode of arrival: ambulatory Limitations: no limitations History of Present Illness Provider complaint: abd pain, hx pancreatitis Onset (ago): hour(s) Location: abdomen Radiation: non-radiation Severity: severe Pain Consistency: + constant Maximum Pain Intensity: 9 Relieved By: + none Exacerbated By: + none Associated symptoms: + loss of appetite and + nausea/vomiting Treatments prior to arrival: none This is a 50-year-old male who presents emergency department complaining of abdominal pain. Patient states abdominal pain began yesterday evening after eating Chinese fries with gravy. Patient states it feels similar to prior episodes of pancreatitis. Patient states he began having mild abdominal pain that he thought was evolving pancreatitis 2 weeks ago however he did not come in for evaluation. He states he drink clear liquids for 2 days and pain slowly resolved. He states he was admitted for pancreatitis last year. He states his gallbladder has been removed, denies any use of alcohol. Patient states he used to drink alcohol and it would trigger pancreatitis, however that is why he no longer drinks. Patient denies fevers, chills. He does admit to nausea and vomiting, denies any hematemesis. Patient denies any diarrhea or melena. Patient denies any recent illness or known sick contacts. Pt seen during a time of high acuity and national emergency pandemic while wearing PPE. Home Medications Medication Instructions Recorded Confirmed Type Balance Of Nature Vitamins 0 tabs PO DIRECTED 04/09/21 04/09/21 History Relief Factor 4 tab PO BID 04/09/21 04/09/21 History losartan 50 mg tablet 50 mg PO DAILY 04/09/21 04/09/21 History omeprazole 20 mg tablet,delayed 20 mg PO DAILY 04/09/21 04/09/21 History release thiamine HCl (vitamin B1) 100 mg 100 mg PO DAILY 04/09/21 04/09/21 History tablet (Vitamin B-1) Allergies Allergy/AdvReac Type Severity Reaction Status Date / Time Penicillins Allergy Mild RASH Verified 04/09/21 02:53 Past Med/Surg History Medical History No pertinent past medical history Recurrent pancreatitis Surgical History Hx of cholecystectomy No pertinent past surgical history Social History Smoking Status: Never smoker Second Hand Exposure: No; Do You Dip or Chew Tobacco: No; Hx Alcohol Use: Yes Alcohol type: beer and hard liquor Hx Substance Use: No Preferred Language: Welsh Communication Ability: Effective Stand Grinder Required: No Beliefs That Will Affect Care: None marital status: Current Living Situation: Spouse Other Information That Helps Us Care for You: No Feels Safe at Home: Yes Assistive Devices: Contacts Review of Systems A total of 10 systems reviewed and were otherwise negative All systems reviewed & are unremarkable except as noted in HPI & below Physical Exam Vital Signs Vital Signs - 24 hr 04/09/21 01:57 04/09/21 02:52 04/09/21 07:59 Temperature 36.4 C L Temperature Source Temporal Artery Scan Pulse Rate 86 Pulse Rate [Right Finger] 74 82 Pulse Rhythm [Right Finger] Regular Pulse Strength [Right Finger] Normal Respiratory Rate 18 16 16 Respiratory Effort / Characteristics Non-Labored Respiratory Depth Normal Normal Blood Pressure 108/77 Blood Pressure [Right Arm] 148/93 H 129/96 Blood Pressure Mean 87 Blood Pressure Mean [Right Arm] 111 107 Pulse Oximetry 96 98 97 Oxygen Delivery Method Room Air Room Air Room Air Sepsis Recent Fever Within 48 Hours No Sepsis New/Unexplained Change in Mental Status N/A Sepsis Action Taken by Nursing No Action Required GENERAL: alert, uncomfortable appearing, well nourished, mild distress, non- toxic EYE EXAM: normal conjunctiva, PERRL and EOM's grossly intact OROPHARYNX: no exudate, no erythema, lips, buccal mucosa, and tongue normal and mucous membranes are moist NECK: supple, no nuchal rigidity, no adenopathy, non-tender LUNGS: Clear to auscultation. Normal chest wall mechanics, no w/r/r HEART: no murmurs, S1 normal and S2 normal ABDOMEN: abdomen soft, generalized tenderness with palpation, normo-active bowel sounds, no masses, no rebound or guarding. BACK: Back is symmetrical on inspection and there is no deformity, no midline tenderness, no CVA tenderness. SKIN: no rashes and no bruising UPPER EXTREMITIES: upper extremities are grossly normal. FROM, nml pulses b/l. LOWER EXTREMITIES: No pitting edema. FROM, nml pulses b/l. NEURO EXAM: Normal sensorium, cranial nerves II-XII grossly intact, normal speech, no gross weakness of arms, no gross weakness of legs. Gross sensation intact. Course Course 050: Patient states he is feeling improved, updated at bedside, still having pain. Nausea is improved. Discussed all results. 0520: Case discussed with [facility]. Administered Medications Enoxaparin Sodium (Enoxaparin Inj 40 Mg/0.4 Ml Syr) 40 mg SQ QAM GALLITO Stop: 05/09/21 09:06 Last Admin: 04/09/21 10:09 Dose: 40 mg Documented by: [id number] Hydralazine HCl (Hydralazine 10 Mg Tab) 10 mg PO Q6H PRN PRN Reason: HypertensionSBP>180 or DBP>100 Stop: 05/09/21 15:29 Last Admin: 04/09/21 15:50 Dose: 10 mg Documented by: [id number] Lactated Ringer's (Lr) 1,000 mls @ 150 mls/hr IV .Q6H40M GALLITO Stop: 04/10/21 10:29 Last Admin: 04/10/21 02:27 Dose: 150 mls/hr Documented by: [id number] Infusion: 04/10/21 01:57 Dose: 150 mls/hr Documented by: [id number] Admin: 04/09/21 19:16 Dose: 150 mls/hr Documented by: [id number] Infusion: 04/09/21 18:41 Dose: 200 mls/hr Documented by: [id number] Admin: 04/09/21 13:41 Dose: 200 mls/hr Documented by: [id number] Infusion: 04/09/21 13:41 Dose: 200 mls/hr Documented by: [id number] Admin: 04/09/21 10:06 Dose: 200 mls/hr Documented by: [id number] Promethazine HCl 12.5 mg/ (Sodium Chloride) 50.5 mls @ 202 mls/hr IV Q6H PRN PRN Reason: Nausea And Vomiting Stop: 05/09/21 05:51 Last Infusion: 04/09/21 20:48 Dose: 0 mls/hr Documented by: [id number] Admin: 04/09/21 20:28 Dose: 202 mls/hr Documented by: [id number] Infusion: 04/09/21 07:05 Dose: 0 mls/hr Documented by: [id number] Admin: 04/09/21 06:48 Dose: 202 mls/hr Documented by: [id number] Morphine Sulfate (Morphine Sulfate 4 Mg/Ml 1 Ml Carp\Vial) 4 mg IV Q4H PRN PRN Reason: Pain Stop: 04/23/21 05:51 Last Admin: 04/10/21 02:26 Dose: 4 mg Documented by: [id number] Admin: 04/09/21 22:16 Dose: 4 mg Documented by: [id number] Admin: 04/09/21 17:09 Dose: 4 mg Documented by: [id number] Oxycodone HCl (Oxycodone Hcl Ir 5 Mg Tab (Immediate Release)) 5 - 10 mg PO QID PRN PRN Reason: Pain Stop: 04/23/21 05:51 Last Admin: 04/09/21 11:22 Dose: 10 mg Documented by: [id number] Pantoprazole Sodium (Pantoprazole 40 Mg Tab) 40 mg PO DAILY GALLITO Stop: 05/09/21 09:06 Last Admin: 04/09/21 10:09 Dose: 40 mg Documented by: [id number] Thiamine HCl (Thiamine Hcl 100 Mg Tab) 100 mg PO DAILY GALLITO Stop: 05/09/21 09:06 Last Admin: 04/09/21 10:09 Dose: 100 mg Documented by: [id number] Discontinued Medications Amlodipine Besylate (Amlodipine Besylate 5 Mg Tab) 5 mg PO NOW ONE Stop: 04/09/21 18:20 Last Admin: 04/09/21 20:32 Dose: 5 mg Documented by: [id number] Clonidine HCl (Clonidine Hcl 0.1 Mg Tab) 0.1 mg PO NOW ONE Stop: 04/09/21 20:51 Last Admin: 04/09/21 22:16 Dose: 0.1 mg Documented by: [id number] Lactated Ringer's (Lr) 1,000 mls @ 999 mls/hr IV .Q1H1M ONE Stop: 04/09/21 03:11 Last Infusion: 04/09/21 03:49 Dose: 0 mls/hr Documented by: [id number] Admin: 04/09/21 02:29 Dose: 999 mls/hr Documented by: [id number] Lactated Ringer's (Lr) 1,000 mls @ 200 mls/hr IV .Q5H ONE Stop: 04/09/21 10:17 Last Infusion: 04/09/21 11:25 Dose: 0 mls/hr Documented by: [id number] Admin: 04/09/21 06:01 Dose: 200 mls/hr Documented by: [id number] Lorazepam (Ativan) 1 mg in 2 mls @ 2 mls/min IV NOW STA Stop: 04/09/21 22:34 Last Admin: 04/09/21 23:23 Dose: 2 mls/min Documented by: [id number] Ioversol (Optiray 320 100ml) 95 ml IV ONCE ONE Stop: 04/09/21 03:50 Last Admin: 04/09/21 03:49 Dose: 95 ml Documented by: [id number] Losartan Potassium (Losartan Potassium 50 Mg Tab) 50 mg PO NOW STA Stop: 04/09/21 05:54 Last Admin: 04/09/21 08:37 Dose: 50 mg Documented by: [id number] Losartan Potassium (Losartan Potassium 50 Mg Tab) 50 mg PO ONE ONE Stop: 04/09/21 16:58 Last Admin: 04/09/21 17:40 Dose: 50 mg Documented by: [id number] Morphine Sulfate (Morphine Sulfate 10 Mg/Ml Carp/Vial) 6 mg IV NOW STA Stop: 04/09/21 02:12 Last Admin: 04/09/21 02:17 Dose: 6 mg Documented by: [id number] Morphine Sulfate (Morphine Sulfate 10 Mg/Ml Carp/Vial) 6 mg IV NOW STA Stop: 04/09/21 02:44 Last Admin: 04/09/21 02:51 Dose: 6 mg Documented by: [id number] Morphine Sulfate (Morphine Sulfate 10 Mg/Ml Carp/Vial) 6 mg IV NOW STA Stop: 04/09/21 05:11 Last Admin: 04/09/21 05:55 Dose: 6 mg Documented by: [id number] Ondansetron HCl (Ondansetron Inj 2 Mg/Ml 2 Ml Vial) 4 mg IV NOW STA Stop: 04/09/21 02:12 Last Admin: 04/09/21 02:17 Dose: 4 mg Documented by: [id number] Promethazine HCl (Promethazine 12.5 Mg/50.5 Ml Nss) Confirm Administered Dose 12.5 mg IV .STK-MED ONE Stop: 04/09/21 06:43 Last Admin: 04/09/21 06:49 Dose: Not Given Documented by: [id number] Medical Decision Making Differential Diagnosis Differential diagnoses includes but is not limited to gastritis, peptic ulcer disease, GERD, gallbladder disease, pancreatitis, small bowel obstruction, acute coronary syndrome, pericarditis, ischemic bowel, irritable bowel disease, irritable bowel syndrome, appendicitis, diverticulitis, malignancy, hernia, urinary tract infection, torsion, [/ectopic (if female)], perforation, trauma, infectious. Medical Records Attestation: I reviewed the patient's medical records. Home Medications Current Medication List: was personally reviewed by me Laboratory Data Attestation: I reviewed the patient's lab results. Result diagrams: 04/09/21 02:20 04/09/21 02:20 Lab Results 04/09/21 04/09/21 Range/Units 02:20 02:20 WBC 12.38 H (4.8-10.8) K/uL RBC 4.98 (4.7-6.1) M/uL Hgb 14.9 (14.0-18.0) g/dL Hct 44.5 (42-52) % MCV 89.4 (80-100) fL MCH 29.9 (25-34) pg MCHC 33.5 (32-36) g/dL RDW Std Deviation 43.4 (36.4-46.3) fL RDW Coeff of Kalin 13.2 (11.5-14.5) % Plt Count 265 (130-400) K/uL MPV 11.0 H (7.4-10.4) fL Immature Gran % (Auto) 0.2 % Neut % (Auto) 72.4 % Lymph % (Auto) 16.6 % [place] % (Auto) 9.5 % Eos % (Auto) 1.1 % Baso % (Auto) 0.2 % Neut # (Auto) 8.97 H (1.4-6.5) K/uL Lymph # (Auto) 2.05 (1.2-3.4) K/uL [place] # (Auto) 1.17 H (0.11-0.59) K/uL Eos # (Auto) 0.14 (0-0.5) K/uL Baso # (Auto) 0.03 (0-0.2) K/uL Immature Gran # (Auto) 0.02 (0.00-0.02) K/uL Sodium 138 (136-145) mmol/L Potassium 3.7 (3.5-5.1) mmol/L Chloride 104 (98-107) mmol/L Carbon Dioxide 26 (21-32) mmol/L Anion Gap 8 (3-11) BUN 19 (6-23) mg/dl Creatinine 1.03 (0.6-1.4) mg/dl Est Cr Clr Drug Dosing 115.6 ml/min Est GFR ( Amer) 99.1 ml/min Est GFR (Non-Af Amer) 85.5 ml/min BUN/Creatinine Ratio 18.4 (10-20) Glucose 121 H (70-99(Fasting)) mg/dl Calcium 9.1 (8.5-10.1) mg/dl Magnesium 1.9 (1.7-2.4) mg/dl Total Bilirubin 0.8 (0.2-1.0) mg/dl AST 15 (13-39) U/L ALT 22 (7-52) U/L Alkaline Phosphatase 77 (34-104) U/L Troponin I < 0.03 (0-0.04) ng/ml Total Protein 7.0 (6.0-8.3) gm/dl Albumin 4.1 (3.4-5.0) gm/dl Globulin 2.9 (2.5-4.0) gm/dl Albumin/Globulin Ratio 1.4 (0.9-2) Lipase 2526 H (11-82) U/L Imaging Data Radiologist's Impression: Abdomen/Pelvis CT 04/09/21 02:[address] WITH IV CONTRAST CT DOSE: 1029.43 mGy.cm HISTORY: Acute generalized abdominal pain abd pain, hx pancreatitis TECHNIQUE: Multiaxial CT images of the abdomen and pelvis were performed following the IV administration of 95 cc of Optiray, A dose lowering technique was utilized adhering to the principles of ALARA. COMPARISON STUDY: CT abdomen and pelvis 09/06/2020 FINDINGS: The imaged inferior cardiac chambers are unremarkable. Mild bibasilar atelectasis. There is no pneumatosis or pneumoperitoneum. The spleen, adrenal glands and liver appear unremarkable. Cholecystectomy. Mild intrahepatic and extrahepatic biliary ductal dilation is unchanged and likely on a postoperative basis. Patent portal, splenic and superior mesenteric veins. There is mild to moderate interstitial and peripancreatic inflammatory stranding with heterogeneous enhancement of the pancreas. No peripancreatic fluid collections or definitive evidence of pancreatic necrosis. Small left greater than right renal sinus cysts are noted bilaterally. Symmetric enhancement of the kidneys without hydronephrosis. Unremarkable urinary bladder and prostate. Small fat filled left inguinal hernia. Pelvic basin phleboliths. Unremarkable abdominal aorta and IVC. Mild colonic diverticulosis. No bowel obstruction or bowel wall thickening. Normal appendix. Stool-filled terminal ileum. Unremarkable soft tissues. No acute fracture. IMPRESSION: 1. Findings compatible with acute pancreatitis. No peripancreatic fluid collection or definitive evidence of pancreatic necrosis. 2. No bowel obstruction or bowel wall thickening. Normal appendix. 3. Cholecystectomy. ACT 112: Negative or not required by law. The above report was generated using voice recognition software. It may contain grammatical, syntax or spelling errors. Electronically signed by: Akil Lao M.D. 04/09/2021 7:[address] abdomen pelvis with contrast: Diffuse peripancreatic stranding with inflammatory changes. Minimal enhancement of the pancreatic tail with decreased enhancement noted within the remaining pancreas. Findings may be due to necrotizing parotitis. Consider multiphasic imaging or MRI if there is further concern. No evidence of acute necrotic collection. No evidence of pseudoaneurysm. The splenic vein is patent. No other acute findings. Radiologist: Alberto Parks MD MDM Narrative This is a 50-year-old male who presents due to concern for abdominal pain and recurrent pancreatitis. Patient has previously had episodes of pancreatitis and has required admission. Labs drawn and sent, IV placed, and patient sent for CT imaging. Patient given IV fluids and several rounds of morphine to help with pain control. He was also given medication for nausea. Labs consistent with pancreatitis given markedly elevated lipase of greater than 2500, CT of the abdomen and pelvis also confirming acute pancreatitis. No definite necrosis, pseudocyst, or abscess. Patient has previously had a cholecystectomy. Discussed all results with patient and given need for recurrent doses of pain medication and ongoing monitoring, he was in agreement with plan for additional inpatient management. Case discussed with hospitalist. An order was placed for continuous cardiac monitoring. The monitor shows a rate of _80_ with _normal sinus_ rhythm. Impression & Plan Abdominal pain, Recurrent pancreatitis, Pancreatitis, Nausea & vomiting Discharge Plan Visit Data Chief Complaint: Abdominal Pain Stated Complaint: PANCREATITIS ED Provider: Gail Tavarez Discharge Problem: Abdominal pain, Recurrent pancreatitis, Pancreatitis, Nausea & vomiting Patient Disposition: Admitted As Inpatient Discharge Instructions Interventions: ED Discharge Assessment Last Done: 04/09/21 08:50 Discharge Problem: Abdominal pain Qualifiers: Abdominal location: generalized Qualified Code(s): R10.84 - Generalized abdominal pain Pancreatitis Qualifiers: Chronicity: acute Pancreatitis type: unspecified pancreatitis type Acute pancreatitis complication: no infection or necrosis Qualified Code(s): K85.90 - Acute pancreatitis without necrosis or infection, unspecified Nausea & vomiting Qualifiers: Vomiting type: unspecified Qualified Code(s): R11.2 - Nausea with vomiting, unspecified
[2021-04-09] MEDS ORDERED: LACTATED RINGER'S 1,000 ML IV ONE ×2 (02:11→05:18)
[2021-04-09] MEDS ORDERED: ONDANSETRON INJ 2 MG/ML 2 ML VIAL IV STA (02:11)
[2021-04-09] MEDS ORDERED: MoRPHine SULFATE 10 MG/ML CARP/VIAL IV STA ×3 (02:11→05:10)
[2021-04-09 02:32] LABS: Basophils # (auto) 0.03 K/uL (0-0.2); Basophils % (auto) 0.2 %; Eosinophils # (auto) 0.14 K/uL (0-0.5); Eosinophils % (auto) 1.1 %; Hematocrit (blood only) 44.5 % (42-52); Hemoglobin 14.9 g/dL (14.0-18.0); Immature Granulocytes # (auto) 0.02 K/uL (0.00-0.02); Immature Granulocytes % (auto) 0.2 %; Lymphocytes # (auto) 2.05 K/uL (1.2-3.4); Lymphocytes % (auto) 16.6 %; Mean Corpuscular Hemoglobin 29.9 pg (25-34); Mean Corpuscular Hgb Conc 33.5 g/dL (32-36); Mean Corpuscular Volume 89.4 fL (80-100); Monocytes # (auto) 1.17 K/uL (0.11-0.59); Monocytes % (auto) 9.5 %; Neutrophils # (auto) 8.97 K/uL (1.4-6.5); Neutrophils % (auto) 72.4 %; Platelet Count 265 K/uL (130-400); RDW Coefficient of Variation 13.2 % (11.5-14.5); RDW Standard Deviation 43.4 fL (36.4-46.3); Red Blood Count 4.98 M/uL (4.7-6.1); White Blood Count 12.38 K/uL (4.8-10.8)
[2021-04-09 02:53] LABS: Troponin I < 0.03 ng/ml (0-0.04)
[2021-04-09 03:26] LABS: Anion Gap 8 (3-11); BUN Creatinine Ratio 18.4 (10-20); Blood Urea Nitrogen 19 mg/dl (6-23); Calcium 9.1 mg/dl (8.5-10.1); Carbon Dioxide 26 mmol/L (21-32); Chloride 104 mmol/L (98-107); Creatinine Clr Calc Pharmacy 115.6 ml/min; Est GFR (African American) 99.1 ml/min; Est GFR (Non-African American) 85.5 ml/min; Glucose 121 mg/dl (70-99(Fasting)); Potassium 3.7 mmol/L (3.5-5.1); Sodium 138 mmol/L (136-145)
[2021-04-09 03:38] LABS: Alanine Aminotransferase 22 U/L (7-52); Albumin Globulin Ratio 1.4 (0.9-2); Albumin Level 4.1 gm/dl (3.4-5.0); Alkaline Phosphatase 77 U/L (34-104); Aspartate Aminotransferase 15 U/L (13-39); Bilirubin,Total 0.8 mg/dl (0.2-1.0); Globulin 2.9 gm/dl (2.5-4.0); Lipase 2526 U/L (11-82); Magnesium 1.9 mg/dl (1.7-2.4)
[2021-04-09] MEDS ORDERED: OPTIRAY 320 100ml IV ONE (03:49)
--- NOTE | 2021-04-09 05:25 | History & Physical Report ---
Date of Service April 09, 2021 Assessment & Plan (1) Recurrent pancreatitis: Plan: Precipitated by fatty food intake as per patient account History alcoholic pancreatitis Hypertension, slight elevated Hyperglycemia rule out DM past alcohol abuse GMF Bowel rest, analgesia, IVF GI consult Re: Recurrent pancreatitis Check hemoglobin A1c DVT prophylaxis per Lovenox subcu Full code Text document was generated using [employer] voice recognition software. It may contain grammatical or spelling errors. Kindly contact undersigned for clarification of any documentation item in question. History of Present Illness Chief Complaint: Abdominal pain Primary Care Provider: Ryan Aguilar MD History obtained from patient and records. Medical history significant for hypertension, asthma, history pancreatitis, past alcohol abuse. Last confinement August 2020 for alcoholic pancreatitis. Outpatient endoscopic ultrasound done by [facility] October 2020 did not show significant pathology at the ampulla. Pancreatic parenchymal abnormalities consisting of diffuse echogenicity were noted in the entire pancreas. No sign of significant pathology in the main pancreatic duct. Last night experienced achy left-sided abdominal pain going to his chest reminiscent of pancreatitis attack followed by nausea and emesis. Precipitated by fatty meals consisting of roast beef sandwich, gravy and Mohawk fries. No fever, no chills. 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 Allergies Allergy/AdvReac Type Severity Reaction Status Date / Time Penicillins Allergy Mild RASH Verified 04/09/21 02:53 Home Medications Medication Instructions Recorded Confirmed Type Balance Of Nature Vitamins 0 tabs PO DIRECTED 04/09/21 04/09/21 History Relief Factor 4 tab PO BID 04/09/21 04/09/21 History losartan 50 mg tablet 50 mg PO DAILY 04/09/21 04/09/21 History omeprazole 20 mg tablet,delayed 20 mg PO DAILY 04/09/21 04/09/21 History release thiamine HCl (vitamin B1) 100 mg 100 mg PO DAILY 04/09/21 04/09/21 History tablet (Vitamin B-1) Past Med/Surg History Medical History No pertinent past medical history Recurrent pancreatitis Surgical History Hx of cholecystectomy No pertinent past surgical history Social History Smoking Status: Never smoker Hx Alcohol Use: Yes Hx Substance Use: Yes Preferred Language: Armenian Communication Ability: Effective marital status: Current Living Situation: Spouse Feels Safe at Home: Yes Review of Systems Review of Systems: As per HPI, all 10 systems reviewed, all other ROS negative Physical Exam Physical Exam: GENERAL: Slightly uncomfortable, obese, no respiratory distress SKIN: Normal color, warm HEENT: [place] palpebral conjunctivae, no ptosis, dry buccal mucosa NECK : Supple, short neck, no tenderness CHEST : CTA, no tenderness HEART : RRR, no obvious murmurs ABDOMEN: Some distention, left-sided abdominal tenderness EXTREMITIES : No LE swelling/tenderness, no other conspicuous deformities noted NEUROLOGIC : Coherent, no facial asymmetry, no other gross focality Results & Data Results & Data ([facility]) Vital Signs (Past 12 Hours) Vital Signs Temp Pulse Pulse Resp BP BP Pulse Ox 04/09/21 02:52 74 16 148/93 H 98 04/09/21 01:57 36.4 C L 86 18 108/77 96 Laboratory Results Laboratory Results WBC 12.38 K/uL (4.8-10.8) H 04/09/21 02:20 RBC 4.98 M/uL (4.7-6.1) 04/09/21 02:20 Hgb 14.9 g/dL (14.0-18.0) 04/09/21 02:20 Hct 44.5 % (42-52) 04/09/21 02:20 MCV 89.4 fL (80-100) 04/09/21 02:20 MCH 29.9 pg (25-34) 04/09/21 02:20 MCHC 33.5 g/dL (32-36) 04/09/21 02:20 RDW Std Deviation 43.4 fL (36.4-46.3) 04/09/21 02:20 RDW Coeff of Kalin 13.2 % (11.5-14.5) 04/09/21 02:20 Plt Count 265 K/uL (130-400) 04/09/21 02:20 MPV 11.0 fL (7.4-10.4) H 04/09/21 02:20 Immature Gran % (Auto) 0.2 % 04/09/21 02:20 Neut % (Auto) 72.4 % 04/09/21 02:20 Lymph % (Auto) 16.6 % 04/09/21 02:20 [place] % (Auto) 9.5 % 04/09/21 02:20 Eos % (Auto) 1.1 % 04/09/21 02:20 Baso % (Auto) 0.2 % 04/09/21 02:20 Neut # (Auto) 8.97 K/uL (1.4-6.5) H 04/09/21 02:20 Lymph # (Auto) 2.05 K/uL (1.2-3.4) 04/09/21 02:20 Gem # (Auto) 1.17 K/uL (0.11-0.59) H 04/09/21 02:20 Eos # (Auto) 0.14 K/uL (0-0.5) 04/09/21 02:20 Baso # (Auto) 0.03 K/uL (0-0.2) 04/09/21 02:20 Immature Gran # (Auto) 0.02 K/uL (0.00-0.02) 04/09/21 02:20 Sodium 138 mmol/L (136-145) 04/09/21 02:20 Potassium 3.7 mmol/L (3.5-5.1) 04/09/21 02:20 Chloride 104 mmol/L (98-107) 04/09/21 02:20 Carbon Dioxide 26 mmol/L (21-32) 04/09/21 02:20 Anion Gap 8 (3-11) 04/09/21 02:20 BUN 19 mg/dl (6-23) 04/09/21 02:20 Creatinine 1.03 mg/dl (0.6-1.4) 04/09/21 02:20 Est Cr Clr Drug Dosing 115.6 ml/min 04/09/21 02:20 Est GFR ( Amer) 99.1 ml/min 04/09/21 02:20 Est GFR (Non-Af Amer) 85.5 ml/min 04/09/21 02:20 BUN/Creatinine Ratio 18.4 (10-20) 04/09/21 02:20 Glucose 121 mg/dl (70-99(Fasting)) H 04/09/21 02:20 Calcium 9.1 mg/dl (8.5-10.1) 04/09/21 02:20 Magnesium 1.9 mg/dl (1.7-2.4) 04/09/21 02:20 Total Bilirubin 0.8 mg/dl (0.2-1.0) 04/09/21 02:20 AST 15 U/L (13-39) 04/09/21 02:20 ALT 22 U/L (7-52) 04/09/21 02:20 Alkaline Phosphatase 77 U/L (34-104) 04/09/21 02:20 Troponin I < 0.03 ng/ml (0-0.04) 04/09/21 02:20 Total Protein 7.0 gm/dl (6.0-8.3) 04/09/21 02:20 Albumin 4.1 gm/dl (3.4-5.0) 04/09/21 02:20 Globulin 2.9 gm/dl (2.5-4.0) 04/09/21 02:20 Albumin/Globulin Ratio 1.4 (0.9-2) 04/09/21 02:20 Lipase 2526 U/L (11-82) H 04/09/21 02:[address] Abdomen pelvis initial read: Diffuse peripancreatic stranding with inflammatorychanges. Minimal enhancement of the pancreatic tail with decreased enhancement noted within the remaining pancreas. Findings maybe due to necrotizing pancreatitis. Consider multiphasic imaging or MRI if there is further concern. No evidence of acute necrotic collection. No evidence of pseudoaneurysm. The splenic vein is patent. No other acute findings. EKG as per my interpretation rate 75, NSR, normal axis, T wave abnormalities inferior leads
[2021-04-09] MEDS ORDERED: LORazepam 0.5 MG/1 ML VIAL IV PRN (05:52)
[2021-04-09] MEDS ORDERED: LOSARTAN POTASSIUM 50 MG TAB PO STA (05:53)
[2021-04-09] MEDS ORDERED: PROMETHAZINE 12.5 MG/50.5 ML NSS IV ONE (06:42)
[2021-04-09] MEDS: PROMETHAZINE HCL 12.5 MG in SODIUM CHLORIDE 0.9% 50 ML IV PRN ×2 (06:48→20:28)
--- NOTE | 2021-04-09 07:18 | CT Scan Report ---
ABDOMEN AND PELVIS CT WITH IV CONTRAST CT DOSE: 1029.43 mGy.cm HISTORY: Acute generalized abdominal pain abd pain, hx pancreatitis TECHNIQUE: Multiaxial CT images of the abdomen and pelvis were performed following the IV administrat ion of 95 cc of Optiray, A dose lowering technique was utilized adhering to the principles of ALARA. COMPARISON STUDY: CT abdomen and pelvis 09/06/2020 FINDINGS: The imaged inferior cardiac chambers are unremarkable. Mild bibasilar atelectasis. There is no pneumatosis or pneumoperitoneum. The spleen, adrenal glands and liver appear unremarkable. Cholec ystectomy. Mild intrahepatic and extrahepatic biliary ductal dilation is unchanged and likely on a po stoperative basis. Patent portal, splenic and superior mesenteric veins. There is mild to moderate in terstitial and peripancreatic inflammatory stranding with heterogeneous enhancement of the pancreas. No peripancreatic fluid collections or definitive evidence of pancreatic necrosis. Small left greater than right renal sinus cysts are noted bilaterally. Symmetric enhancement of the k idneys without hydronephrosis. Unremarkable urinary bladder and prostate. Small fat filled left ingui nal hernia. Pelvic basin phleboliths. Unremarkable abdominal aorta and IVC. Mild colonic diverticulosis. No bowel obstruction or bowel wall thickening. Normal appendix. Stool-fi lled terminal ileum. Unremarkable soft tissues. No acute fracture. IMPRESSION: 1. Findings compatible with acute pancreatitis. No peripancreatic fluid collection or definitive evid ence of pancreatic necrosis. 2. No bowel obstruction or bowel wall thickening. Normal appendix. 3. Cholecystectomy. ACT 112: Negative or not required by law. The above report was generated using voice recognition software. It may contain grammatical, syntax o r spelling errors. Electronically signed by: Akil Lao M.D. 04/09/2021 7:17 AM
[2021-04-09 07:41] LABS: Estimated Average Glucose 123 mg/dl; Hemoglobin A1C 5.9 % (4.5-5.6)
[2021-04-09] MEDS: LACTATED RINGER'S 1,000 ML IV SCH ×3 (10:06→19:16)
[2021-04-09] MEDS: PANTOprazole 40 MG TAB PO SCH (10:09)
[2021-04-09] MEDS: ENOXAPARIN INJ 40 MG/0.4 ML SYR SQ SCH (10:09)
[2021-04-09] MEDS: THIAMINE HCL 100 MG TAB PO SCH (10:09)
[2021-04-09] MEDS: oxyCODONE HCL IR 5 MG TAB (IMMEDIATE RELEASE) PO PRN (11:22)
--- NOTE | 2021-04-09 11:35 | Electrocardiogram Report ---
Test Reason : Blood Pressure : / mmHG Vent. Rate : 077 BPM Atrial Rate : 077 BPM P-R Int : 150 ms QRS Dur : 090 ms QT Int : 402 ms P-R-T Axes : 030 -09 -09 degrees QTc Int : 454 ms Normal sinus rhythm Normal ECG When compared with ECG of 06-SEP-2020 22:03, No significant change was found Confirmed by Vik Ramos ([id number]) on 04/09/2021 11:34:46 AM Referred By: REFERRED SELF Confirmed By:Vik Ramos
--- NOTE | 2021-04-09 14:03 | Hospitalist Progress Note ---
Date of Service April 09, 2021 Assessment & Plan (1) Recurrent pancreatitis: Plan: Recurrent Pancreatitis H/O alcoholic pancreatitis -- CT ABD:Findings compatible with acute pancreatitis. No peripancreatic fluid collection or definitive evidence of pancreatic necrosis. No bowel obstruction or bowel wall thickening. Normal appendix. Cholecystectomy. Denies any recent alcohol use No hypertriglyceridemia on blood work Normal LFTs Had MRCP August 2020 which was normal Continue IV fluids Lipase levels elevated at 2526 GI consulted Pain control Hypertension Slightly elevated Continue losartan Prediabetes HbA1C: 5.9 DVT pX: Lovenox sq Code Status Full code Admission and Anticipated Discharge Date Admission Date: April 09, 2021 Subjective Patient examined at bedside States having generalized abdominal pain Denies any nausea, vomiting, chest pain, shortness of breath, dizziness Offers no other complaints Review of Systems Review of Systems: All systems reviewed & are unremarkable except as noted in Subjective Physical Exam Physical Exam: Physical Exam: Vitals signs as noted above General Appearance:Moderately built and nourished, no apparent distress Head: normocephalic, Atraumatic Eyes: normal inspection, EOMI Neck: supple, Trachea midline Respiratory/Chest: Normal breath sounds, CTA, No accessory muscle use Cardiovascular: S1, S2, No murmur Abdomen/GI:Soft, generalized tender, Bowel sounds present, no guarding or rigidity Extremities/Musculoskeletal:normal inspection, no edema Neurologic/Psych:AAOX3, grossly no focal neurological deficits Skin: normal color, warm Results & Data Results & Data ([facility]) Vital Signs (Past 12 Hours) Vital Signs Temp Pulse Pulse Resp BP BP Pulse Ox 04/09/21 11:12 152/87 H 04/09/21 09:26 36.7 C 62 17 151/96 H 98 04/09/21 07:59 82 16 129/96 97 04/09/21 02:52 74 16 148/93 H 98 04/09/21 01:57 36.4 C L 86 18 108/77 96 Laboratory Results Short CBC 04/09/21 Range/Units 02:20 WBC 12.38 H (4.8-10.8) K/uL Hgb 14.9 (14.0-18.0) g/dL Hct 44.5 (42-52) % Plt Count 265 (130-400) K/uL BMP 04/09/21 02:20 Sodium 138 Potassium 3.7 Chloride 104 Carbon Dioxide 26 BUN 19 Creatinine 1.03 Glucose 121 H Calcium 9.1 Cardiac Enzymes 04/09/21 Range/Units 02:20 Troponin I < 0.03 (0-0.04) ng/ml Liver Function 04/09/21 Range/Units 02:20 Total Bilirubin 0.8 (0.2-1.0) mg/dl AST 15 (13-39) U/L ALT 22 (7-52) U/L Alkaline Phosphatase 77 (34-104) U/L Albumin 4.1 (3.4-5.0) gm/dl
[2021-04-09] MEDS ORDERED: hydrALAZINE 10 MG TAB PO PRN (15:30)
[2021-04-09] MEDS ORDERED: LOSARTAN POTASSIUM 50 MG TAB PO ONE (16:57)
[2021-04-09] MEDS: MoRPHine SULFATE 4 MG/ML 1 ML CARP\\VIAL IV PRN ×2 (17:09→22:16)
[2021-04-09] MEDS ORDERED: amLODIPine BESYLATE 5 MG TAB PO ONE (18:19)
[2021-04-09] MEDS ORDERED: cloNIDine HCL 0.1 MG TAB PO ONE (20:50)
--- NOTE | 2021-04-09 20:54 | Consultation Report ---
GASTROENTEROLOGY CONSULTATION DATE OF SERVICE: 04/09/2021. AGE: 50. SEX: Male. RACE: . ATTENDING PHYSICIAN: Dr. Wale Dawson CONSULTING PHYSICIAN: Giuseppe Smith DO. REASON FOR CONSULTATION: Recurrent pancreatitis. HISTORY OF PRESENT ILLNESS: The patient is a 50-year-old male who has a history of prior a lcohol abuse and multiple episodes of pancreatitis, most recently in August of 2020. He did undergo a laparoscopic cholecystectomy and did undergo an endoscopic ultrasound in October of 2020, which did no t show any significant pathology at the ampulla or pancreatic parenchymal abnormalities consistent wi th chronic pancreatitis. He presented to the Department of Emergency Medicine on 04/09/2021 in the e francis morning hours following ingestion of Vietnamese fries with gravy and stated that he developed severe left-sided abdominal pain radiating to his chest followed by nausea and emesis. Upon arrival to the Department of Emergency Medicine, he was noted to have a white blood cell count of 12.38, a normal l iver panel and a lipase level of 2526. He underwent a CT scan of his abdomen and pelvis, which showe d findings compatible with acute pancreatitis, but no peripancreatic fluid collection or definitive e vidence of pancreatic necrosis. He was subsequently admitted, was given high volume IV fluids with l actated Ringer's and narcotic analgesics as well as antiemetics. At the time that I saw the patient t cecily, he continued to complain of some left-sided abdominal pain. He states that oxycodone that they have been giving him has not been significantly helpful for his pain. He has tolerated some clear l iquids minimally as he states that when he ate jello, it seemed to worsen his pain. He denies any re cent jaundice, hematemesis, melena or hematochezia. He further denies any acholic stools, dark urine , pruritus or alcohol intake as he states his last alcohol use was in August of 2020 following his last inpatient stay for pancreatitis. He denies any further complaints at this time. PAST MEDICAL HISTORY: Significant for pancreatitis. PAST SURGICAL HISTORY: Includes a cholecystectomy. ALLERGIES: PENICILLIN. MEDICATIONS: At present include Lovenox 40 mg subcutaneously q.a.m., Ativan 0.5 mg IV q.4 hours, Coz aar 50 mg p.o. daily, morphine 4 mg IV q.4 p.r.n. pain, oxycodone 5-10 mg p.o. q.i.d. p.r.n., Protoni x 40 mg p.o. daily, Phenergan 12.5 mg IV q.6, thiamine 100 mg p.o. daily. SOCIAL HISTORY: He states that he has not had any alcohol since August of 2020. He is . He de nies any tobacco or illicit drug use. FAMILY HISTORY: Negative for GI malignancy or inflammatory bowel disease. It also does not include any history of pancreatitis in the family. REVIEW OF SYSTEMS: Negative [id number] review other than pertinent positives listed in the HPI. PHYSICAL EXAMINATION: VITAL SIGNS: Include a temperature of 36.7, pulse 62, respirations 17, blood pressure 152/87, pulse ox 98% on room air. GENERAL: He is awake. He is cooperative. He is in mild distress. HEAD: Normocephalic, atraumatic. EYES: Pupils equal, round. Extraocular muscles are intact. ENT: External evaluation of ears and nose are normal. Oropharynx is clear. NECK: Soft and supple. There is no JVD or lymphadenopathy. CHEST: Clear to auscultation bilaterally. CARDIOVASCULAR: Regular rate and rhythm. ABDOMEN: Soft, tender in the left upper quadrant, nondistended. There are positive bowel sounds. T here is no hepatosplenomegaly or stigmata of chronic liver disease. EXTREMITIES: No clubbing, no cyanosis, no edema. SKIN: Soft, pink. Good turgor. Laboratory studies and radiographic studies were reviewed in the HPI. IMPRESSION: A 50-year-old male with recurrent pancreatitis of unknown etiology. PLAN: At the present time, I would recommend that the patient be continued on IV fluids, narcotic an algesics, antiemetics as needed. I again discussed with him the need to abstain from all alcohol as this is a known pancreatic toxin. He agreed with this and states that he will not be drinking any al cohol in the future. I did ask for him to follow up with his GI team at [facility] for further workup of his recurrent episodes of pancreatitis. He was in agreement with this plan. I wi ll follow his clinical course and make further recommendations as needed. Once again, thanks for allowing me to participate in the care of this patient. If you have any furth er questions, please do not hesitate in contacting me. Job ID: [id number]
[2021-04-09] MEDS ORDERED: LORazepam 1 MG/2 ML VIAL IV STA (22:33)
[2021-04-10] MEDS: MoRPHine SULFATE 4 MG/ML 1 ML CARP\\VIAL IV PRN ×2 (02:26→11:43)
[2021-04-10] MEDS: LACTATED RINGER'S 1,000 ML IV SCH ×3 (02:27→20:24)
[2021-04-10] MEDS: oxyCODONE HCL IR 5 MG TAB (IMMEDIATE RELEASE) PO PRN ×2 (04:33→20:23)
[2021-04-10] MEDS: PROMETHAZINE HCL 12.5 MG in SODIUM CHLORIDE 0.9% 50 ML IV PRN ×2 (05:04→20:23)
[2021-04-10 06:04] LABS: Basophils # (auto) 0.02 K/uL (0-0.2); Basophils % (auto) 0.1 %; Eosinophils # (auto) 0.02 K/uL (0-0.5); Eosinophils % (auto) 0.1 %; Hematocrit (blood only) 43.9 % (42-52); Hemoglobin 14.4 g/dL (14.0-18.0); Immature Granulocytes # (auto) 0.03 K/uL (0.00-0.02); Immature Granulocytes % (auto) 0.2 %; Lymphocytes # (auto) 1.34 K/uL (1.2-3.4); Lymphocytes % (auto) 8.7 %; Mean Corpuscular Hemoglobin 29.6 pg (25-34); Mean Corpuscular Hgb Conc 32.8 g/dL (32-36); Mean Corpuscular Volume 90.3 fL (80-100); Monocytes # (auto) 1.21 K/uL (0.11-0.59); Monocytes % (auto) 7.8 %; Neutrophils # (auto) 12.82 K/uL (1.4-6.5); Neutrophils % (auto) 83.1 %; Platelet Count 260 K/uL (130-400); RDW Coefficient of Variation 13.5 % (11.5-14.5); RDW Standard Deviation 44.8 fL (36.4-46.3); Red Blood Count 4.86 M/uL (4.7-6.1); White Blood Count 15.44 K/uL (4.8-10.8)
[2021-04-10 06:32] LABS: Albumin Globulin Ratio 1.3 (0.9-2); Albumin Level 3.9 gm/dl (3.4-5.0); Bilirubin,Total 1.4 mg/dl (0.2-1.0); Calcium 8.8 mg/dl (8.5-10.1); Creatinine Clr Calc Pharmacy 148.1 ml/min; Est GFR (African American) 122.4 ml/min; Est GFR (Non-African American) 105.6 ml/min; Globulin 2.9 gm/dl (2.5-4.0); Potassium 3.8 mmol/L (3.5-5.1); Total Protein 6.8 gm/dl (6.0-8.3)
[2021-04-10] MEDS: PANTOprazole 40 MG TAB PO SCH (08:01)
[2021-04-10] MEDS: LOSARTAN POTASSIUM 50 MG TAB PO SCH (08:02)
[2021-04-10] MEDS: THIAMINE HCL 100 MG TAB PO SCH (08:02)
[2021-04-10] MEDS: ENOXAPARIN INJ 40 MG/0.4 ML SYR SQ SCH (08:03)
[2021-04-10] MEDS ORDERED: amLODIPine BESYLATE 5 MG TAB PO SCH ×2 (09:00→21:00)
[2021-04-10] MEDS ORDERED: LOSARTAN POTASSIUM 50 MG TAB PO SCH (09:00)
[2021-04-10] MEDS: hydrALAZINE HCL 20 MG/ML VIAL IV PRN ×2 (10:48→17:13)
[2021-04-10] MEDS ORDERED: KETOROLAC TROMETHAMINE 15 MG/ML VIAL IV ONE ×2 (11:37→16:15)
[2021-04-10] MEDS: FAMOTIDINE 20 MG in SYRINGE 3 ML IV SCH ×2 (12:26→21:44)
--- NOTE | 2021-04-10 14:05 | Gastroenterology Progress Note ---
Date of Service April 10, 2021 Assessment & Plan (1) Abdominal pain: (2) Pancreatitis: Plan: Lipase has improved, however, he continues to have abdominal pain Would re-introduce clear liquids as tolerated Primary team is working to control his BP Continue supportive care Admission and Anticipated Discharge Date Admission Date: April 09, 2021 Subjective Discussed case with nurse at bedside, who reports Jean-Pierre had 3 episodes of vomiting last night consisting of Jello which he had eaten previously. He was switched back to NPO by the hospitalist team. Nursing reports that the patient's blood pressure has been uncontrolled overnight as well, and the Hospitalist team is working to correct this. Jean-Pierre states that his pain has improved since yesterday, but he still does not feel back to normal. He denies any fevers, chills, nausea, diarrhea, hematemesis, melena or hematochezia. He denies any further complaints. Physical Exam Constitutional: WD/WN, vitals as above Respiratory: normal respiratory effort, lungs clear to auscultation Cardiovascular: RRR, no murmur, no edema Gastrointestinal (Abdomen): Inspection/Auscultation: abdomen normal to inspection and normal bowel sounds; abdomen not distended Percussion/Palpation: + abdomen tender (LUQ) and abdomen soft Results & Data Results & Data ([facility]) Vital Signs (Past 12 Hours) Vital Signs Temp Pulse Resp BP Pulse Ox 04/10/21 10:27 200/110 H 04/10/21 08:07 36.7 C 84 16 193/107 H 95 04/10/21 07:56 75 189/107 H PG Care Time/CCT Total # of Minutes Spent Total Time Spent with Patient: Total time spent is greater than 50% in coordination of care (as documented) at patient's floor/unit and/or counseling patient: Coding Level of Care Code 20486 Subseq Hosp Care Lvl 3 Diagnoses Abdominal pain R10.84 Abdominal location: generalized Pancreatitis K85.90 Acute pancreatitis complication: no infection or necrosis Chronicity: acute Pancreatitis type: unspecified pancreatitis type (1) Abdominal pain Abdominal location: generalized Qualified Code(s): R10.84 - Generalized abdominal pain (2) Pancreatitis Acute pancreatitis complication: no infection or necrosis Chronicity: acute Pancreatitis type: unspecified pancreatitis type Qualified Code(s): K85.90 - Acute pancreatitis without necrosis or infection, unspecified
--- NOTE | 2021-04-10 17:23 | Hospitalist Progress Note ---
Date of Service April 10, 2021 Assessment & Plan (1) Recurrent pancreatitis: Plan: Recurrent Pancreatitis H/O alcoholic pancreatitis -- CT ABD:Findings compatible with acute pancreatitis. No peripancreatic fluid collection or definitive evidence of pancreatic necrosis. No bowel obstruction or bowel wall thickening. Normal appendix. Cholecystectomy. Denies any recent alcohol use No hypertriglyceridemia on blood work Normal LFTs Had MRCP August 2020 which was normal Continue IV fluids Lipase levels:[id number] Appreciate GI Input Pain control Hypertensive Urgency H/O Hypertension Increase losartan to 100 mg daily Added amlodipine, carvedilol Hydralazine as needed Prediabetes HbA1C: 5.9 DVT pX: Lovenox sq Code Status Full code Admission and Anticipated Discharge Date Admission Date: April 09, 2021 Subjective Patient examined at bedside Continues to have generalized abdominal pain Also reports nausea, vomiting Denies any chest pain, shortness of breath, dizziness, headache Offers no other complaints Review of Systems Review of Systems: All systems reviewed & are unremarkable except as noted in Subjective Physical Exam Physical Exam: Physical Exam: Vitals signs as noted above General Appearance:Moderately built and nourished, no apparent distress Head: normocephalic, Atraumatic Eyes: normal inspection, EOMI Neck: supple, Trachea midline Respiratory/Chest: Normal breath sounds, CTA, No accessory muscle use Cardiovascular: S1, S2, No murmur Abdomen/GI:Soft, generalized tender, Bowel sounds present, no guarding or rigidity Extremities/Musculoskeletal:normal inspection, no edema Neurologic/Psych:AAOX3, grossly no focal neurological deficits Skin: normal color, warm Results & Data Results & Data ([facility]) Vital Signs (Past 12 Hours) Vital Signs Temp Pulse Resp BP Pulse Ox 04/10/21 15:51 37.1 C 96 H 18 206/111 H 96 04/10/21 10:27 200/110 H 04/10/21 08:07 36.7 C 84 16 193/107 H 95 04/10/21 07:56 75 189/107 H Laboratory Results Short CBC 04/10/21 Range/Units 05:46 WBC 15.44 H (4.8-10.8) K/uL Hgb 14.4 (14.0-18.0) g/dL Hct 43.9 (42-52) % Plt Count 260 (130-400) K/uL BMP 04/10/21 05:46 Sodium 134 L Potassium 3.8 Chloride 99 Carbon Dioxide 28 BUN 12 Creatinine 0.80 Glucose 126 H Calcium 8.8 Liver Function 04/10/21 Range/Units 05:46 Total Bilirubin 1.4 H D (0.2-1.0) mg/dl AST 10 L (13-39) U/L ALT 17 (7-52) U/L Alkaline Phosphatase 67 (34-104) U/L Albumin 3.9 (3.4-5.0) gm/dl
[2021-04-10] MEDS: carvediloL 6.25 MG TAB PO SCH ×2 (18:23→21:14)
[2021-04-11] MEDS: oxyCODONE HCL IR 5 MG TAB (IMMEDIATE RELEASE) PO PRN ×3 (03:28→21:36)
[2021-04-11] MEDS ORDERED: MAGNESIUM SULFATE / D5W 1 GM/100 ML BAG IV ONE (03:37)
[2021-04-11] MEDS ORDERED: POTASSIUM CHLORIDE PWD 20 MEQ PACK PO STA (03:37)
[2021-04-11] MEDS ORDERED: POLYETHYLENE (MIRALAX) 17 GM PACK PO STA (03:44)
[2021-04-11] MEDS: carvediloL 6.25 MG TAB PO SCH ×2 (04:07→21:34)
[2021-04-11 04:45] LABS: Basophils # (auto) 0.03 K/uL (0-0.2); Basophils % (auto) 0.2 %; Eosinophils # (auto) 0.07 K/uL (0-0.5); Eosinophils % (auto) 0.4 %; Hematocrit (blood only) 44.7 % (42-52); Hemoglobin 15.1 g/dL (14.0-18.0); Immature Granulocytes # (auto) 0.04 K/uL (0.00-0.02); Immature Granulocytes % (auto) 0.2 %; Lymphocytes # (auto) 1.35 K/uL (1.2-3.4); Lymphocytes % (auto) 8.2 %; Mean Corpuscular Hemoglobin 30.2 pg (25-34); Mean Corpuscular Hgb Conc 33.8 g/dL (32-36); Mean Corpuscular Volume 89.4 fL (80-100); Mean Platelet Volume 10.9 fL (7.4-10.4); Monocytes # (auto) 1.57 K/uL (0.11-0.59); Monocytes % (auto) 9.6 %; Neutrophils # (auto) 13.32 K/uL (1.4-6.5); Neutrophils % (auto) 81.4 %; Platelet Count 266 K/uL (130-400); RDW Coefficient of Variation 13.4 % (11.5-14.5); RDW Standard Deviation 44.3 fL (36.4-46.3); White Blood Count 16.38 K/uL (4.8-10.8)
[2021-04-11 05:14] LABS: Albumin Globulin Ratio 1.3 (0.9-2); BUN Creatinine Ratio 16.5 (10-20); Calcium 8.9 mg/dl (8.5-10.1); Est GFR (African American) 123.1 ml/min; Est GFR (Non-African American) 106.2 ml/min; Potassium 3.8 mmol/L (3.5-5.1)
[2021-04-11] MEDS: LACTATED RINGER'S 1,000 ML IV SCH ×2 (06:14→15:29)
[2021-04-11] MEDS: DOCUSATE SODIUM/SENNA 50/8.6MG TAB PO SCH ×2 (06:15→21:35)
[2021-04-11] MEDS: THIAMINE HCL 100 MG TAB PO SCH (09:05)
[2021-04-11] MEDS: LOSARTAN POTASSIUM 50 MG TAB PO SCH (09:05)
[2021-04-11] MEDS: ENOXAPARIN INJ 40 MG/0.4 ML SYR SQ SCH (09:05)
[2021-04-11] MEDS: FAMOTIDINE 20 MG in SYRINGE 3 ML IV SCH ×2 (09:05→21:36)
[2021-04-11] MEDS: PANTOprazole 40 MG TAB PO SCH (09:05)
[2021-04-11 10:44] LABS: Chol HDL Ratio 2.4 (0-5)
--- NOTE | 2021-04-11 11:05 | Gastroenterology Progress Note ---
Date of Service April 11, 2021 Assessment & Plan (1) Acute pancreatitis: Plan: Recurrent pancreatitis w/o clear etiology. No suspect causes: doesn't drink ETOH, not a smoker, no faith dil on imaging and no elevated LFTs. Prior EUS in 2020 w/o pancreas abnormalities. Continue IV fluids. Current diet order is for clear liquids - agree and would advance to full liquids, low fat if tolerates the clear liquids po. Continue analgesics and antiemetics. Will plan to see in OP GI clinic and will arrange labs to r/o autoimmune and hereditary pancreatitis. Admission and Anticipated Discharge Date Admission Date: April 09, 2021 Supervising Physician Co-Signing Physician Notes I saw and evaluated the patient this morning. He appears improved from over the weekend an now has improving labs. He did have a similar admission in the summer thought to be related to alcohol use (patient reports being abstinant) Recommendations: repeat EUS in 6 weeks lipid panel shanice igg subset urine tox screen avoid use of supplements consisder a full liquid diet today Subjective 50 yr old male admitted on 04/[address] w acute pancreatitis. Lipase >2000->resolved to 134. LFTs have been normal. OP EGD/EUS in October [address] Sotomayor w/o cause of prior episode of pancreatitis in August 2019. His post distant choley. No ETOH. Not a smoker. No fam hx of pancreatitis. Had a brief episode of SVT early today and spontaneous converted back to NSR. Today, pain persists but is improved. no BM since prior to admission but is passing some flatus. Vomited most recently on 04/09. Tolerating water po now, though still some nausea. Review of Systems Review of Systems: ROS: Gen: Denies weakness, fevers, weight loss Eyes: No eye redness, or pain, no recent vision changes Resp: No SOB, no cough Cardio: No palpitations/irregular beats, no chest pain GI: As per HPI, otherwise (-) : Denies pain on urination Skin: No jaundice, itching or new rashes Physical Exam Constitutional: well developed and cooperative Eyes: PERRL, conjunctivae normal, anicteric sclerae Respiratory: normal respiratory effort and able to speak in complete sentences; no respiratory distress, no labored breathing, does not use accessory muscles and no cough Cardiovascular: RRR, no murmur, no edema Gastrointestinal (Abdomen): Inspection/Auscultation: abdomen normal to inspection and normal bowel sounds; abdomen not distended and no abdominal edema Percussion/Palpation: + abdomen tender (moderately tender in the epigastric area) and abdomen soft BS are present but hypoactive Skin: no rashes, warm and dry normal turgor Neurologic: PERRL, EOMI, accommodation nl, no face palsy, no dysarthria awake; not confused Psychiatric: Orientation: alert, oriented x 3 and cooperative Results & Data ([facility]) Vital Signs (Past 12 Hours) Vital Signs Temp Pulse Pulse Resp BP BP Pulse Ox 04/11/21 07:45 77 04/11/21 06:38 36.9 C 78 20 139/83 96 04/11/21 06:07 137/77 04/11/21 03:42 173/104 H 04/11/21 03:32 36.3 C L 84 20 181/106 H 95 Laboratory Results WBC 16, , Hb 15, Hct 44, Plts 266, Na 134, K 3.8, Cl 99, CO2 26, BUN 13, Cr 0.79 Plts 108, lipase 2526 -> 134. Diagnostic Findings CTAP 04/09/21: 1. Findings compatible with acute pancreatitis. No peripancreatic fluid collection or definitive evidence of pancreatic necrosis. 2. No bowel obstruction or bowel wall thickening. Normal appendix. 3. Cholecystectomy. (1) Acute pancreatitis Acute pancreatitis complication: unspecified Pancreatitis type: alcohol induced Qualified Code(s): K85.20 - Alcohol induced acute pancreatitis without necrosis or infection
[2021-04-11] MEDS: PROMETHAZINE HCL 12.5 MG in SODIUM CHLORIDE 0.9% 50 ML IV PRN (14:55)
--- NOTE | 2021-04-11 17:26 | Hospitalist Progress Note ---
Date of Service April 11, 2021 Assessment & Plan (1) Recurrent pancreatitis: Plan: Recurrent Pancreatitis H/O alcoholic pancreatitis -- CT ABD:Findings compatible with acute pancreatitis. No peripancreatic fluid collection or definitive evidence of pancreatic necrosis. No bowel obstruction or bowel wall thickening. Normal appendix. Cholecystectomy. Denies any recent alcohol use No hypertriglyceridemia on blood work Normal LFTs Had MRCP August 2020 which was normal Continue IV fluids Lipase levels:[id number] Appreciate GI Input Pain control Advance diet as tolerated Needs follow-up with GI upon discharge Hypertensive Urgency H/O Hypertension Increase losartan to 100 mg daily Added carvedilol Hydralazine as needed Prediabetes HbA1C: 5.9 DVT pX: Lovenox sq Code Status Full code Admission and Anticipated Discharge Date Admission Date: April 09, 2021 Subjective Patient is seen and examined at bedside States feeling better today Denies any nausea vomiting Abdominal pain is improving slowly Denies any chest pain, shortness of breath, dizziness, headache Review of Systems Review of Systems: All systems reviewed & are unremarkable except as noted in Subjective Physical Exam Physical Exam: Physical Exam: Vitals signs as noted above General Appearance:Moderately built and nourished, no apparent distress Head: normocephalic, Atraumatic Eyes: normal inspection, EOMI Neck: supple, Trachea midline Respiratory/Chest: Normal breath sounds, CTA, No accessory muscle use Cardiovascular: S1, S2, No murmur Abdomen/GI:Soft, mild tender, Bowel sounds present, no guarding or rigidity Extremities/Musculoskeletal:normal inspection, no edema Neurologic/Psych:AAOX3, grossly no focal neurological deficits Skin: normal color, warm Results & Data Results & Data ([facility]) Vital Signs (Past 12 Hours) Vital Signs Temp Pulse Pulse Resp BP BP Pulse Ox 04/11/21 16:28 37.4 C 83 16 157/97 H 97 04/11/21 11:45 37.1 C 92 H 16 145/84 H 97 04/11/21 07:45 77 04/11/21 06:38 36.9 C 78 20 139/83 96 04/11/21 06:07 137/77 Laboratory Results Short CBC 04/11/21 Range/Units 04:19 WBC 16.38 H (4.8-10.8) K/uL Hgb 15.1 (14.0-18.0) g/dL Hct 44.7 (42-52) % Plt Count 266 (130-400) K/uL BMP 04/11/21 04:19 Sodium 134 L Potassium 3.8 Chloride 99 Carbon Dioxide 26 BUN 13 Creatinine 0.79 Glucose 108 H Calcium 8.9 Liver Function 04/11/21 Range/Units 04:19 Total Bilirubin 2.0 H (0.2-1.0) mg/dl AST 9 L (13-39) U/L ALT 14 (7-52) U/L Alkaline Phosphatase 65 (34-104) U/L Albumin 4.0 (3.4-5.0) gm/dl
[2021-04-11] MEDS: MoRPHine SULFATE 4 MG/ML 1 ML CARP\\VIAL IV PRN (22:48)
[2021-04-12] MEDS: LACTATED RINGER'S 1,000 ML IV SCH ×2 (01:34→11:23)
[2021-04-12 07:20] LABS: Hematocrit (blood only) 41.4 % (42-52); Hemoglobin 13.8 g/dL (14.0-18.0); Mean Corpuscular Hemoglobin 30.1 pg (25-34); Mean Corpuscular Hgb Conc 33.3 g/dL (32-36); Mean Corpuscular Volume 90.4 fL (80-100); Mean Platelet Volume 10.9 fL (7.4-10.4); Platelet Count 244 K/uL (130-400); RDW Coefficient of Variation 13.5 % (11.5-14.5); RDW Standard Deviation 44.9 fL (36.4-46.3); Red Blood Count 4.58 M/uL (4.7-6.1); White Blood Count 12.06 K/uL (4.8-10.8)
[2021-04-12 07:46] LABS: Albumin Globulin Ratio 1.2 (0.9-2); Albumin Level 3.6 gm/dl (3.4-5.0); BUN Creatinine Ratio 14.4 (10-20); Bilirubin,Total 1.3 mg/dl (0.2-1.0); Calcium 8.5 mg/dl (8.5-10.1); Creatinine Clr Calc Pharmacy 131.7 ml/min; Est GFR (African American) 116.6 ml/min; Est GFR (Non-African American) 100.6 ml/min; Globulin 2.9 gm/dl (2.5-4.0); Potassium 3.6 mmol/L (3.5-5.1); Total Protein 6.5 gm/dl (6.0-8.3)
--- NOTE | 2021-04-12 09:26 | Gastroenterology Progress Note ---
Date of Service April 12, 2021 Assessment & Plan (1) Acute pancreatitis: Plan: Recurrent pancreatitis w/o clear etiology. No suspect causes: doesn't drink ETOH, not a smoker, no faith dil on imaging and no elevated LFTs. Prior EUS in 2020 w/o pancreas abnormalities. Will check for C-diff as had 3 liquid BMs this morning. He is taking some multi-ingredient supplements Balance of Nature Fruits and Balance of Nature Vegetables as well as a joint supplement - asked him to stop these as they may be contributing to the episodes of pancreatitis. Continue IV fluids. Advance diet to low fat solid foods. Pt is very motivated to go home today - he is not sleeping well in the hospital. If tolerates solid food, then would consider DC. Our office will contact him to arrange OP EUS in 6wks and OP Office visit after to go over results, check labs to r/o autoimmune and hereditary pancreatitis. Admission and Anticipated Discharge Date Admission Date: April 09, 2021 Supervising Physician Co-Signing Physician Notes I saw and evaluated the patient. He notes that his abdominal pain is much improved aside from diarrhea. Given this we would suggest screening for evidence of C. difficile infection. We would suggest advancing to a low-fat diet and perhaps planning for discharge as early as tomorrow. Please call with any questions or concerns, GI to sign off Subjective 50 yr old male with recurrent pancreatitis w/o clear etiology. Doing, "much better," today. Epigastric pain has resolved. Tolerating a full liquid diet w/o increasing discomfort or nausea. Now diarrhea and diffuse abd cramping. 3 liquid BMs this morning. Review of Systems Review of Systems: ROS: Gen: Denies weakness, fevers, weight loss Eyes: No eye redness, or pain, no recent vision changes Resp: No SOB, no cough Cardio: No palpitations/irregular beats, no chest pain GI: As per HPI, otherwise (-). : Denies pain on urination Skin: No jaundice, itching or new rashes Physical Exam Constitutional: well developed and cooperative Eyes: PERRL, conjunctivae normal, anicteric sclerae Respiratory: normal respiratory effort and able to speak in complete sentences; no respiratory distress, no labored breathing, does not use accessory muscles and no cough Cardiovascular: RRR, no murmur, no edema Gastrointestinal (Abdomen): Inspection/Auscultation: abdomen normal to inspection, normal bowel sounds and + hyperactive bowel sounds; abdomen not distended and no abdominal edema Percussion/Palpation: abdomen soft; abdomen nontender Skin: no rashes, warm and dry normal turgor Neurologic: PERRL, EOMI, accommodation nl, no face palsy, no dysarthria awake; not confused Psychiatric: Orientation: alert, oriented x 3 and cooperative Lymphatic: no cervical or axillary lymphadenopathy Results & Data ([facility]) Vital Signs (Past 12 Hours) Vital Signs Temp Pulse Pulse Resp BP BP Pulse Ox 04/12/21 07:00 36.6 C 73 20 166/95 H 96 04/12/21 02:55 36.9 C 75 18 136/85 95 04/11/21 22:40 37.2 C 84 18 154/94 H 95 04/11/21 22:19 81 04/11/21 21:31 78 157/90 H Laboratory Results WBC 12, Hb 13, Hct 41, Plts 244, Na 137, K 3.7, Cl 107, CO2 24, BUN 28, Cr 1.42, glucose 113. Diagnostic Findings CTAP w IV contrast on 04/09/21: 1. Findings compatible with acute pancreatitis. No peripancreatic fluid collection or definitive evidence of pancreatic necrosis. 2. No bowel obstruction or bowel wall thickening. Normal appendix. 3. Cholecystectomy. (1) Acute pancreatitis Acute pancreatitis complication: unspecified Pancreatitis type: alcohol induced Qualified Code(s): K85.20 - Alcohol induced acute pancreatitis without necrosis or infection
[2021-04-12] MEDS: LOSARTAN POTASSIUM 50 MG TAB PO SCH (09:31)
[2021-04-12] MEDS: carvediloL 6.25 MG TAB PO SCH (09:31)
[2021-04-12] MEDS: THIAMINE HCL 100 MG TAB PO SCH (09:32)
[2021-04-12] MEDS: ENOXAPARIN INJ 40 MG/0.4 ML SYR SQ SCH (09:32)
[2021-04-12] MEDS: PANTOprazole 40 MG TAB PO SCH (09:32)
[2021-04-12] MEDS: FAMOTIDINE 20 MG in SYRINGE 3 ML IV SCH (09:39)
--- NOTE | 2021-04-12 12:18 | Hospitalist Progress Note ---
Date of Service April 12, 2021 Assessment & Plan (1) Recurrent pancreatitis: Plan: Recurrent Pancreatitis H/O alcoholic pancreatitis -- CT ABD:Findings compatible with acute pancreatitis. No peripancreatic fluid collection or definitive evidence of pancreatic necrosis. No bowel obstruction or bowel wall thickening. Normal appendix. Cholecystectomy. Denies any recent alcohol use No hypertriglyceridemia on blood work Normal LFTs Had MRCP August 2020 which was normal Continue IV fluids Lipase levels:[id number] Appreciate GI Input Advance to low-fat diet Blood work for autoimmune and hereditary pancreatitis pending Needs follow-up with GI upon discharge for outpatient endoscopic ultrasound Hypertensive Urgency H/O Hypertension Increase losartan to 100 mg daily Added carvedilol Hydralazine as needed Prediabetes HbA1C: 5.9 DVT pX: Lovenox sq Code Status Full code Admission and Anticipated Discharge Date Admission Date: April 09, 2021 Subjective Patient is seen and examined at bedside States having loose bowel movement this morning Denies nausea, vomiting Abdominal pain much improved Tolerating full liquid diet Denies any chest pain, shortness of breath, dizziness, headache Review of Systems Review of Systems: All systems reviewed & are unremarkable except as noted in Subjective Physical Exam Physical Exam: Physical Exam: Vitals signs as noted above General Appearance:Moderately built and nourished, no apparent distress Head: normocephalic, Atraumatic Eyes: normal inspection, EOMI Neck: supple, Trachea midline Respiratory/Chest: Normal breath sounds, CTA, No accessory muscle use Cardiovascular: S1, S2, No murmur Abdomen/GI:Soft, non tender, Bowel sounds present, no guarding or rigidity Extremities/Musculoskeletal:normal inspection, no edema Neurologic/Psych:AAOX3, grossly no focal neurological deficits Skin: normal color, warm Results & Data Results & Data ([facility]) Vital Signs (Past 12 Hours) Vital Signs Temp Pulse Pulse Resp BP BP Pulse Ox 04/12/21 12:00 37.0 C 95 H 18 157/76 H 92 04/12/21 08:00 70 04/12/21 07:00 36.6 C 73 20 166/95 H 96 04/12/21 02:55 36.9 C 75 18 136/85 95 Laboratory Results Short CBC 04/12/21 Range/Units 07:06 WBC 12.06 H (4.8-10.8) K/uL Hgb 13.8 L (14.0-18.0) g/dL Hct 41.4 L (42-52) % Plt Count 244 (130-400) K/uL BMP 04/12/21 07:06 Sodium 137 Potassium 3.6 Chloride 102 Carbon Dioxide 28 BUN 13 Creatinine 0.90 Glucose 103 H Calcium 8.5 Liver Function 04/12/21 Range/Units 07:06 Total Bilirubin 1.3 H (0.2-1.0) mg/dl AST 10 L (13-39) U/L ALT 15 (7-52) U/L Alkaline Phosphatase 61 (34-104) U/L Albumin 3.6 (3.4-5.0) gm/dl
[2021-04-12] MEDS: PROMETHAZINE HCL 12.5 MG in SODIUM CHLORIDE 0.9% 50 ML IV PRN (12:48)
--- NOTE | 2021-04-12 13:34 | Discharge Summary ---
Date of Service April 12, 2021 Admission HPI Per Admitting Provider History obtained from patient and records. Medical history significant for hypertension, asthma, history pancreatitis, past alcohol abuse. Last confinement August 2020 for alcoholic pancreatitis. Outpatient endoscopic ultrasound done by [facility] October 2020 did not show significant pathology at the ampulla. Pancreatic parenchymal abnormalities consisting of diffuse echogenicity were noted in the entire pancreas. No sign of significant pathology in the main pancreatic duct. Last night experienced achy left-sided abdominal pain going to his chest reminiscent of pancreatitis attack followed by nausea and emesis. Precipitated by fatty meals consisting of roast beef sandwich, gravy and Turkmen fries. No fever, no chills. 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 Admission Exam Per Admitting Provider Physical Exam: GENERAL: Slightly uncomfortable, obese, no respiratory distress SKIN: Normal color, warm HEENT: [place] palpebral conjunctivae, no ptosis, dry buccal mucosa NECK : Supple, short neck, no tenderness CHEST : CTA, no tenderness HEART : RRR, no obvious murmurs ABDOMEN: Some distention, left-sided abdominal tenderness EXTREMITIES : No LE swelling/tenderness, no other conspicuous deformities noted NEUROLOGIC : Coherent, no facial asymmetry, no other gross focality Principal Diagnosis Recurrent Pancreatitis Hypertensive Urgency Discharge Data Allergies Allergy/AdvReac Type Severity Reaction Status Date / Time Penicillins Allergy Mild RASH Verified 04/09/21 02:53 Consultations 04/09/21 05:16 ED Decision to Admit Stat 04/09/21 09:19 Consult Gastroenterology Routine Ordered Studies 04/09/21 02:43 CT abd pelvis IV con only Urgent Hospital Course (1) Recurrent pancreatitis: Recurrent Pancreatitis H/O alcoholic pancreatitis -- CT ABD:Findings compatible with acute pancreatitis. No peripancreatic fluid collection or definitive evidence of pancreatic necrosis. No bowel obstruction or bowel wall thickening. Normal appendix. Cholecystectomy. Denies any recent alcohol use No hypertriglyceridemia on blood work Normal LFTs Had MRCP August 2020 which was normal Continue IV fluids Lipase levels:[id number] Appreciate GI Input Advance to low-fat diet Blood work for autoimmune and hereditary pancreatitis pending Needs follow-up with GI upon discharge for outpatient endoscopic ultrasound Hypertensive Urgency H/O Hypertension Increase losartan to 100 mg daily Added carvedilol Hydralazine as needed Prediabetes HbA1C: 5.9 DVT pX: Lovenox sq Code Status Full code Total Time Total Time Spent Total Time Spent (In Minutes): 40 minutes Discharge Plan Discharge Items Patient Disposition: Home - Self-Care Reason For Visit: PANCREATITIS Discharge Diagnosis: Recurrent Pancreatitis Hypertensive Urgency Activity: Per Instructions section Exercise/Sports: Gradually increase as tolerated Non-emergency contact: Primary Care Provider and Tank House Operator Call non-emergency contact if: you have any medication questions, your symptoms worsen, your pain is concerning for you and you have a fever Follow-up/Referrals: Ryan Aguilar MD [Primary Care Provider] - (Date & Time 04/15/2021 2:00 PM Provider Ryan Aguilar MD [facility] ) Diet: Heart Healthy and Low Fat Addtl Attending Provider Instructions: Follow-up with your primary care physician on 04/15/2021 2:00 PM 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 Sotomayor for outpatient endoscopic ultrasound in 6 weeks as advised to rule out causes for recurrent pancreatitis --Your blood work for autoimmune and hereditary pancreatitis is pending at the time of discharge. Follow-up with your physician for results. --Avoid Alcohol use as advised. --Your blood pressure medication losartan is increased 200 mg daily and your started on carvedilol 3.125 mg twice a day for better control of your blood pressure. Discuss with your primary care physician for further adjustment of your blood pressure medications as needed. Seek immediate medical attention if your symptoms reoccur or worsen Please take all medications as instructed on discharge list below. Please call if you have any questions or problems. You can reach a [facility] hospitalist on duty at [facility] 24 hours a day by calling [phone] Pending Studies at Discharge: Yes Studies:: Blood work for autoimmune and hereditary pancreatitis Stand-Alone Forms: My [facility] [employer], Smoking Cessation Medications and DC Order Prescriptions: New carvedilol 6.25 mg Tablet 3.125 mg PO BID 30 Days Qty: 30 RF: 0 losartan 100 mg tablet 100 mg PO DAILY Qty: 30 RF: 0 Continued thiamine HCl (vitamin B1) [Vitamin B-1] 100 mg Tablet 100 mg PO DAILY RF: 0 omeprazole 20 mg Tablet,Delayed Release (/Ec) 20 mg PO DAILY RF: 0 Relief Factor 4 tab PO BID RF: 0 Discontinued losartan 50 mg tablet 50 mg PO DAILY RF: 0 Balance Of Nature Vitamins 0 tabs PO DIRECTED RF: 0 Discharge Orders: Discharge Order (Routine); Ordered 04/12/21 Ordered By: Wale Dawson Admission Data Admit Date/Time: 04/09/21 05:49 Attending Provider: Wale Dawson Admit Provider: Wale Dawson Primary Care Provider: Ryan Aguilar Other Providers: Moiz Billy ; Giuseppe Smith ; Cynthia Mendez ; Haylee Lopez ; Jorge Alberto Raines
[2021-04-14 07:12] LABS: 7-Aminoclonazepam DNR ng/mL (<25); Alpha-Hydroxyalprazolam DNR ng/mL (<25); Alphahydroxymidazolam DNR ng/mL (<50); Alphahydroxytriazolam DNR ng/mL (<50); Amobarbital DNR ng/mL (<100); Amphetamines, Ur NEGATIVE ng/mL (<500); Amphetemines Ur GC/MS DNR ng/mL (<250); Barbiturates, Urine NEGATIVE ng/mL (<300); Benzodiazepines,Ur NEGATIVE ng/mL (<100); Butalbital DNR ng/mL (<100); Cocaine, Urine NEGATIVE ng/mL (<150); Cocaine,Ur GC/MS DNR ng/mL (<100); Codeine NEGATIVE ng/mL (<50); Confirmatory Facility DNR; EDDP DNR ng/mL (<100); Hydrocodone NEGATIVE ng/mL (<50); Hydromorphone NEGATIVE ng/mL (<50); Hydroxyethylflurazepam DNR ng/mL (<50); Lorazepam DNR ng/mL (<50); Methadone, Ur GC/MS NEGATIVE ng/mL (<100); Methadone, Urine DNR ng/mL (<100); Methamphetamine DNR ng/mL (<250); Morphine 593 ng/mL (<50); Norhydrocodone NEGATIVE ng/mL (<50); Noroxycodone 278 ng/mL (<50); Opiates, Urine POSITIVE ng/mL (<100); Oxycodone,Ur Screen POSITIVE ng/mL (<100); Pentobarbital DNR ng/mL (<100); Phencyclidine, Ur NEGATIVE ng/mL (<25); Phencyclidine,Ur GC/MS DNR ng/mL (<25); Secobarbital DNR ng/mL (<100); THC20, Qual, Urine NEGATIVE ng/mL (<20); Temazepam DNR ng/mL (<50); Tetrahydrocannabinol DNR ng/mL (<5)
[2021-04-14 08:01] LABS: Anti Nuclear Antibody Screen NEGATIVE (NEGATIVE); Immunoglobulin G 960 mg/dL (600-1640); Immunoglobulin G1 385 mg/dL (382-929); Immunoglobulin G2 375 mg/dL (241-700); Immunoglobulin G3 53 mg/dL (22-178); Immunoglobulin G4 57.6 mg/dL (4.0-86.0)
== END 2021-04-12 15:32 | disposition home or self-care (01) | DRG 440 ==
LOC: ED 01:51 → 3N 05:49 → 2N 04-10 18:23